=== PATIENT | male | born 1945 | race Caucasian/White ===

== ENCOUNTER 2023-08-25 13:09 | Emergency (ER) | payer MEDICARE, SELFPAY ==
--- NOTE | ~2023-08-25 | XR_ITS ---
EXAMINATION: XR CHEST CLINICAL INFORMATION: Shortness of breath. COMPARISON: None available. TECHNIQUE: 2 views of the chest were obtained. FINDINGS: Left cardiac device with leads in right atrium and right ventricle. No vascular congestion or pulmonary edema. Lungs are hypoexpanded. Small bilateral pleural effusions. No pneumothorax. No focal consolidation. Cholecystectomy clips. Degenerative changes in the spine. XR/XR chest 2V IMPRESSION: Small bilateral pleural effusions. No over edema or focal pneumonia.
--- NOTE | 2023-08-25 13:11 | ED_ITS ---
HPI - General Adult General Chief complaint: General Medical Stated complaint: Difficulty breathing, congestion Time Seen by Provider: 08/25/23 13:45 Source: patient Mode of arrival: ambulatory Limitations: no limitations History of Present Illness HPI narrative: Patient is a 78-year-old male who presents emergency department for evaluation of productive cough, nasal congestion, body aches. Symptom onset 5 days ago. Initially was short of breath but this has since resolved. Primarily his concern is he nasal congestion and cough. Cough is keeping him up at night. He has tried OTC cold medications without significant improvement. He denies fevers, chills, headache, neck pain, neck stiffness, chest pain, difficulty breathing, shortness of breath, numbness or tingling of the extremities, lower extremity edema, nausea, vomiting, abdominal pain. Related Data Previous Rx's Medication Instructions Recorded amoxicillin 875 mg-potassium 1 tab PO BID #14 tabs 08/25/23 clavulanate 125 mg tablet codeine 10 mg-guaifenesin 100 mg/5 10 ml PO Q6H PRN cough #118 mL 08/25/23 mL oral liquid Allergies Allergy/AdvReac Type Severity Reaction Status Date / Time latex [LATEX] Allergy Unknown RASH Unverified 06/30/20 15:12 morphine [MORPHINE] Allergy Unknown UNK Unverified 06/30/20 15:12 Review of Systems 2 Review of Systems: Yes all other systems are reviewed and are negative [facility] Past Medical History Attestation statement: The following information was validated with the patient. Source: old records reviewed Social History Social History Advance Directives: No Advance Directives Information Provided: No Physical Exam ED Vital Signs: Vital Signs - 24 hr 08/25/23 13:14 Temperature 97.7 F Pulse Rate 73 Respiratory Rate 18 Blood Pressure 134/78 Pulse Oximetry 95 Oxygen Delivery Method Room Air BMI result Body Mass Index 29.7 Appearance: Alert.?Oriented to person, place and time. No acute distress.?Normal affect. Eyes: Pupils equal, round and reactive to light.? ENT: Pharynx normal.?? Bilateral maxillary sinus tenderness upon palpation Neck: Normal inspection.? Neck supple.?? no cervical lymphadenopathy CVS: Heart sounds normal. Normal heart rate and rhythm.? Pulses normal.?? Respiratory: No respiratory distress.? Lung sounds clear to auscultation bilaterally?? Abdomen: Soft and non-tender. Normoactive bowel sounds. Skin: Skin warm and dry.? Normal skin color.? Extremities: No lower extremity edema.? No calf ttp? Neuro: Moves all extremities spontaneously. Sensation intact bilaterally. Ambulates with normal steady gait. Course Course Course Narrative: RME performed by Mihaela Rodriguez PA-C. Patient is a 78 year old assigned male at presenting to the emergency department with shortness of breath and body aches. Labs, imaging, and swabs ordered. Patient placed back in the waiting room pending room availability and results. Medical Decision Making Medical Decision Making [facility] Narrative: patient is a 78-year-old male past medical history of atrial fibrillation on warfarin, pacemaker, hypertension, diabetes, GERD, hyperlipidemia who presents to the emergency department for evaluation of upper respiratory symptoms as per HPI. At the time my examination he is overall appearing, nontoxic, afebrile. No tachypnea, tachycardia, or hypoxia. Wells score negative, anticoagluated with warfarin and has been copliant, unlikely pulmonary embolism. No chest pain, currently no shortness of breath, unlikely ACS, high sensitive troponin detectable but within normal limits, EKG revealing atrial fibrillation with incomplete right bundle-branch block with Q-wave in V1- V2, rate controlled, no ST elevation, no ST depression, no T-wave inversion. symptoms consistent with bronchitis/acute sinusitis, discussed plan of care for discharge home, conservative treatment, saline sinus rinses, sent prescription for Augmentin to pharmacy, discussed close monitoring of INR while on antibiotics. reviewed worrisome signs and symptoms that would warrant re-evaluation emergency department. All questions answered. Stable for discharge. Differential Diagnosis Differential Diagnoses: The differential diagnosis associated with the presentation includes ( as noted above) Admission/Observation Consideration of admission/observation: Escalation of care including admission/observation considered Lab Data [facility] Lab Attestation statement: I reviewed the patient's lab results. CBC is without leukocytosis, mild normocytic anemia not needing transfusion criteria. CMP is overall unremarkable, mildly elevated BUN at 19 and creatinine 1.21 consistent with prior levels in March of 2019. High sensitive troponin detectable at 13, however within normal limits. COVID- 19/influenza / RSV testing negative. 08/25/23 13:34 08/25/23 13:34 Labs: Lab Results 08/25/23 Range/Units 13:34 WBC 8.6 (4.8-10.8) X10*3/uL RBC 4.55 L (4.60-5.80) X10*6/uL Hgb 13.1 L (14.0-18.0) g/dl Hct 39.2 L (42.0-52.0) % MCV 86.2 (80.0-98.0) fL MCH 28.8 (27.0-33.0) pg MCHC 33.4 (31.0-36.0) g/dl RDW 12.9 (11.0-16.0) % Plt Count 212 (160-400) X10*3/uL MPV 9.4 (9.4-12.4) fL Immature Gran % (Auto) 0.2 (0.0-0.4) % Neut % (Auto) 70.3 (45-73) % Lymph % (Auto) 13.4 L (20-40) % [place] % (Auto) 11.2 H (2-11) % Eos % (Auto) 4.3 H (0-4) % Baso % (Auto) 0.6 (0-2) % Lymph # (Auto) 1.2 (1.2-4.9) X10*3/uL [place] # (Auto) 1.0 (0.1-1.2) X10*3/uL Eos # (Auto) 0.4 (0.0-0.4) X10*3/uL Baso # (Auto) 0.1 (0.0-0.2) X10*3/uL Abs Immat Gran (auto) 0.02 (0.00-0.03) X10*3/uL Absolute Neuts (auto) 6.1 (2.0-8.3) x10*3/uL Absolute Nucleated RBC 0.000 (0.0-0.012) X10*3/uL Nucleated RBC % (auto) 0.0 (0.0-0.2) /100WBC Sodium 139 (135-145) mmol/L Potassium 4.0 (3.3-5.1) mmol/L Chloride 102 (96-108) mmol/L Carbon Dioxide 28 (22-29) mmol/L Anion Gap 13 (12-20) BUN 19 H (9-16) mg/dL Creatinine 1.21 (0.5-1.4) mg/dL Estim Creat Clear Calc 57.0 Estimated GFR 58 Random Glucose 186 H (60-115) mg/dL Calcium 9.5 (8.4-10.2) mg/dL Magnesium 2.1 (1.6-2.6) mg/dL Total Bilirubin 1.1 H (0.0-1.0) mg/dL AST 15 (5-37) U/L ALT 12 (0-40) U/L Alkaline Phosphatase 81 (39-117) U/L Troponin I High Sens 13.0 (<3.5-35.0) ng/L Total Protein 7.1 (6.5-8.0) g/dL Albumin 4.2 (3.5-5.0) g/dL Independent Interpretation I performed an independent interpretation of an: EKG ( As noted above) and Plain X-Ray ( I have personally interpreted chest x-ray and agree with radiologist impression.) Radiology Impression Discussion of test interpretation with radiology: I have reviewed the radiologist's reading. Radiologist Impression: XR/XR chest 2V IMPRESSION: Small bilateral pleural effusions. No over edema or focal pneumonia. Independent Historian Clinical information obtained from an independent historian. History obtained from or confirmed by: Spouse ( present at bedside who confirms history) External Record Review External record reviewed: Outpatient record Prescription Management I considered prescription management with: Antibiotic Discharge Plan Discharge Clinical Impression: Bronchitis, Acute maxillary sinusitis Patient Disposition: Home, Self-Care Instructions: Sinusitis (ED), Acute Bronchitis (ED) Additional Instructions: please discuss with your primary care provider and Coumadin clinic close monitoring your INR while oral antibiotics. Follow up their primary care provider for any persistent symptoms. Return back to emergency department with any new or worsening symptoms or concerns. Prescriptions: New amoxicillin-pot clavulanate 875-125 mg tablet 1 tab PO BID Qty: 14 0RF codeine-guaifenesin 10-100 mg/5 mL liquid 10 ml PO Q6H PRN (Reason: cough) Qty: 118 0RF Referrals: Michael Ron MD [Primary Care Provider] -
[2023-08-25 13:14] VITALS: BP 134/78; PULSE 73; RESP 18; TEMP 36.5; O2SAT 95; BMI 29.7
--- NOTE | 2023-08-25 13:14 | ECG_ITS ---
Test Reason : SOB Blood Pressure : / mmHG Vent. Rate : 077 BPM Atrial Rate : 000 BPM P-R Int : 000 ms QRS Dur : 102 ms QT Int : 392 ms P-R-T Axes : 000 -25 032 degrees QTc Int : 443 ms Atrial fibrillation Incomplete right bundle branch block Abnormal ECG When compared with ECG of 24-MAR-2019 21:10, Atrial fibrillation has replaced Electronic atrial pacemaker Referred By: Mihaela Rodriguez Electronically Signed By:EARNEST HARPER MD
[2023-08-25 13:38] LABS: MANUAL DIFF FLAG NO
[2023-08-25 13:57] LABS: Alanine Aminotransferase 12 U/L (0-40); Albumin Level 4.2 g/dL (3.5-5.0); Alkaline Phosphatase 81 U/L (39-117); Anion Gap 13 (12-20); Aspartate Amino Transferase 15 U/L (5-37); Bilirubin Total 1.1 mg/dL (0.0-1.0); Blood Urea Nitrogen 19 mg/dL (9-16); Calcium 9.5 mg/dL (8.4-10.2); Carbon Dioxide 28 mmol/L (22-29); Chloride 102 mmol/L (96-108); Estimated Glomerular Filt Rate 58; Glucose Random 186 mg/dL (60-115); Magnesium 2.1 mg/dL (1.6-2.6); Sodium 139 mmol/L (135-145); Total Protein 7.1 g/dL (6.5-8.0)
[2023-08-25 13:58] LABS: Basophils Absolute Auto 0.1 X10*3/uL (0.0-0.2); Basophils Percent Auto 0.6 % (0-2); Eosinophils Absolute Auto 0.4 X10*3/uL (0.0-0.4); Eosinophils Percent Auto 4.3 % (0-4); Hematocrit 39.2 % (42.0-52.0); Hemoglobin 13.1 g/dl (14.0-18.0); Imm Gran Abs Auto 0.02 X10*3/uL (0.00-0.03); Imm Gran Pct Auto 0.2 % (0.0-0.4); Lymphocytes Absolute Auto 1.2 X10*3/uL (1.2-4.9); Lymphocytes Percent Auto 13.4 % (20-40); Mean Corpuscular HGB Conc 33.4 g/dl (31.0-36.0); Mean Corpuscular Hemoglobin 28.8 pg (27.0-33.0); Mean Corpuscular Volume 86.2 fL (80.0-98.0); Mean Platelet Volume 9.4 fL (9.4-12.4); Monocytes Percent Auto 11.2 % (2-11); Neutrophils Absolute Auto 6.1 x10*3/uL (2.0-8.3); Neutrophils Percent Auto 70.3 % (45-73); Platelet Count 212 X10*3/uL (160-400); Red Blood Count 4.55 X10*6/uL (4.60-5.80); Red Cell Distribution Width 12.9 % (11.0-16.0); White Blood Count 8.6 X10*3/uL (4.8-10.8)
[2023-08-25 14:18] LABS: Influenza A PCR NEGATIVE (Negative); Influenza B PCR NEGATIVE (Negative); Resp Syncy Virus RNA Qual PCR NEGATIVE (Negative); SARS COV2 PCR INHOUSE NEGATIVE (Negative)
[2023-08-25 14:57] LABS: B Type Natriuretic Peptide 143 pg/mL (<100)
== END 2023-08-25 15:12 | disposition home or self-care (01) ==
PROVIDERS: Nurse Practitioner Family; Physician Assistant Medical; Emergency Provider Emergency Medicine Emergency Medical Services; PCP Internal Medicine
DX: J40 Bronchitis, not specified as acute or chronic (principal); J01.00 Acute maxillary sinusitis, unspecified; R06.02 Shortness of breath; Z20.822 Contact with and (suspected) exposure to COVID-19; Z20.828 Contact with and (suspected) exposure to other viral communicable diseases
CPT/HCPCS: 0241U; 71046; 80053; 83735; 83880; 84484; 85025; 93005; 99283; 99284

== ENCOUNTER 2024-11-04 21:55 | Emergency (ER) | payer MEDICARE, SELFPAY ==
--- NOTE | ~2024-11-04 | CT_ITS ---
CLINICAL HISTORY: right flank pain CT abdomen and pelvis without contrast Comparison: None Findings: The lung bases are clear. Liver is of low-attenuation, hepatic steatosis. Gallbladder is surgically absent. Pancreas spleen and adrenal glands are within normal limits. Kidneys are non hydronephrotic. No bowel obstruction, pneumoperitoneum, or pneumatosis. Fat containing bilateral inguinal hernias noted. Sigmoid diverticulosis is present without diverticulitis. Visualized appendix is normal. Grade 1 anterolisthesis of L5 on S1 is present. No fracture or acute osseous abnormality identified. Atherosclerotic vascular calcifications are noted. IMPRESSION: No acute findings. This document has been electronically signed by: Mahendra Valero MD, PHD on 11/05/2024 03:35:30
[2024-11-04 22:00] VITALS: BP 174/89; PULSE 79; RESP 18; TEMP 36.2; O2SAT 98; BMI 28.8
[2024-11-05 00:19] VITALS: BP 186/81; PULSE 73; RESP 14; O2SAT 97
--- NOTE | 2024-11-05 00:58 | ED.GENADULT ---
HPI - General Adult General Chief complaint: Back Pain/Injury Stated complaint: back pain Time Seen by Provider: 11/05/24 00:58 History of Present Illness ED Provider: Emerson HENDRICKSON narrative: The patient is a 79-year-old male who was on warfarin because of atrial fibrillation. Patient has been experiencing back pain in his right lower back since Saturday night, about 3 days ago. There was no injury that seemed to precipitate this syndrome. He has had no fever, sweats, chills. He says the pain comes in spasms. He feels the pain in the right leg as well and has pain walking when he puts pressure on the right leg. Related Data Previous Rx's ?Medication ?Instructions ?Recorded amoxicillin 875 mg-potassium 1 tab PO BID #14 tabs 08/25/23 clavulanate 125 mg tablet codeine 10 mg-guaifenesin 100 mg/5 10 ml PO Q6H PRN cough #118 mL 08/25/23 mL oral liquid codeine 10 mg-guaifenesin 100 mg/5 10 ml PO Q6H PRN cough #118 mL 08/27/23 mL oral liquid cyclobenzaprine 5 mg tablet 5 mg PO TID PRN muscle spasm #14 11/05/24 tabs oxycodone 5 mg tablet 5 mg PO Q6H PRN pain #14 tabs 11/05/24 Allergies Allergy/AdvReac Type Severity Reaction Status Date / Time latex [LATEX] Allergy Unknown RASH Verified 11/04/24 22:02 morphine [MORPHINE] Allergy Unknown UNK Verified 11/04/24 22:02 Review of Systems Review of Systems: Yes all other systems are reviewed and are negative [facility] Social History Social History Alcohol intake: current Alcohol intake frequency: holidays/special occasions only Physical Exam ED Vital Signs: Vital Signs - 24 hr 11/04/24 22:00 11/05/24 00:19 11/05/24 04:33 Temperature 97.2 F 98.2 F Pulse Rate 79 73 64 Respiratory Rate 18 14 16 Blood Pressure 174/89 H 186/81 H 160/85 H Pulse Oximetry 98 97 98 Oxygen Delivery Method Room Air Room Air Room Air BMI result Body Mass Index 28.8 Const Other: The patient is a 79-year-old male. He is awake and alert. He was sitting on the side of the stretcher. He did not seem obviously acutely ill but had frequent episodes of what seemed to be acute spasm like pain that seemed to cause evident discomfort. These episodes seemed fairly frequent and uncomfortable but brief. His mental status was normal. He did not seem otherwise toxic or in distress. HENMT Other: Face is symmetrical. Mucous membranes moist. Eyes General: appearance normal, both eyes and all related structures Neck Neck: Yes full ROM Resp Effort & Inspection: normal respiratory effort Auscultation: clear to auscultation bilaterally Cardio Other: the patient had an irregular rate and rhythm. No definite murmur. GI Other: The abdomen is soft and nontender Back/Spine/Pelvis Other: patient has tenderness in his right lower back near the posterior superior iliac spine. Skin Other: Skin is dry and unremarkable Neuro Other: the patient is awake and alert with normal mental status. Cranial nerves are intact. He has some pain moving his right leg but otherwise he seems neurologically intact with intact sensation and motor function which is intact aside from pain. Extrem Other: No peripheral edema. Medications Administered Discontinued Medications Generic Name Dose Route Start Last Admin Trade Name Hali PRN Reason Stop Dose Admin Cyclobenzaprine HCl 10 mg 11/05/24 03:52 11/05/24 04:37 Cyclobenzaprine Hcl 10 Mg Tablet PO 11/05/24 03:53 10 mg ONCE ONE Administration Acetaminophen 1,000 mg in 100 mls @ 400 mls/hr 11/05/24 01:03 11/05/24 01:35 Ofirmev IV 11/05/24 01:17 Infused ONCE ONE Infusion Lidocaine 2 patch 11/05/24 04:22 11/05/24 04:37 Lidocaine 4 % Patch Adh..Patch TRANSDERMA 11/05/24 04:23 2 patch ONCE ONE Administration Protocol Oxycodone HCl 5 mg 11/05/24 01:03 11/05/24 01:10 Oxycodone Hcl Immed Release 5 Mg Tablet PO 11/05/24 01:04 5 mg ONCE ONE Administration Medical Decision Making Medical Decision Making MDM Narrative: The patient is a 79-year-old male with a history of atrial fibrillation on warfarin who has had 3 days of nontraumatic right-sided low back pain that radiates to the right buttock and is not associated with any neurological complaints. No fevers. The pain that he seems to be experiencing seems to come in frequent episodes of spasms. The patient was given an IV dose of acetaminophen and an oral dose of oxycodone. It was not clear that he got that much benefit from these medications. He was also given a dose of cyclobenzaprine as a muscle relaxant. Ultimately he seemed to be somewhat more comfortable. He has a noncontrast CT of the abdomen and pelvis that shows no obvious concerning problems to account for his pain. His labs are unremarkable. His INR is therapeutic. He does not have any anemia to suggest any kind of pathological bleeding process causing this pain and there is no hematoma seen on his noncontrast CT. Diagnostically I think this is some kind of a muscular spasm like back pain rather than anything more worrisome. He does not seem to have any neurological complications. He will be discharged with prescriptions for oxycodone and cyclobenzaprine and should also use acetaminophen. He should follow up with his PCP soon. Lab Data 11/05/24 01:19 11/05/24 01:19 Labs: Lab Results 11/05/24 Range/Units 01:19 WBC 10.0 (4.8-10.8) X10*3/uL RBC 5.25 (4.60-5.80) X10*6/uL Hgb 15.2 (14.0-18.0) g/dl Hct 44.9 (42.0-52.0) % MCV 85.5 (80.0-98.0) fL MCH 29.0 (27.0-33.0) pg MCHC 33.9 (31.0-36.0) g/dl RDW 13.1 (11.0-16.0) % Plt Count 203 (160-400) X10*3/uL MPV 9.3 L (9.4-12.4) fL Immature Gran % (Auto) 0.3 (0.0-0.4) % Neut % (Auto) 76.4 H (45-73) % Lymph % (Auto) 13.5 L (20-40) % [place] % (Auto) 6.5 (2-11) % Eos % (Auto) 2.7 (0-4) % Baso % (Auto) 0.6 (0-2) % Lymph # (Auto) 1.3 (1.2-4.9) X10*3/uL [place] # (Auto) 0.7 (0.1-1.2) X10*3/uL Eos # (Auto) 0.3 (0.0-0.4) X10*3/uL Baso # (Auto) 0.1 (0.0-0.2) X10*3/uL Abs Immat Gran (auto) 0.03 (0.00-0.03) X10*3/uL Absolute Neuts (auto) 7.6 (2.0-8.3) x10*3/uL Absolute Nucleated RBC 0.000 (0.0-0.012) X10*3/uL Nucleated RBC % (auto) 0.0 (0.0-0.2) /100WBC PT 28.3 H (10.9-12.4) SEC INR 2.4 H (0.9-1.1) Sodium 140 (135-145) mmol/L Potassium 3.9 (3.3-5.1) mmol/L Chloride 105 (96-108) mmol/L Carbon Dioxide 24 (22-29) mmol/L Anion Gap 15 (12-20) BUN 17 H (9-16) mg/dL Creatinine 1.12 (0.5-1.4) mg/dL Estim Creat Clear Calc 59.8 Estimated GFR > 60 Random Glucose 217 H (60-115) mg/dL Calcium 10.0 (8.4-10.2) mg/dL Magnesium 2.1 (1.6-2.6) mg/dL Total Bilirubin 0.8 (0.0-1.0) mg/dL Direct Bilirubin 0.3 (0.0-0.5) mg/dL AST 28 (5-37) U/L ALT 34 (0-40) U/L Alkaline Phosphatase 84 (39-117) U/L C-Reactive Protein 0.11 (< or = 0.50) mg/dL Total Protein 7.9 (6.5-8.0) g/dL Albumin 4.5 (3.5-5.0) g/dL Discharge Plan Discharge Clinical Impression: Acute right-sided low back pain, Back muscle spasm Patient Disposition: Home, Self-Care Additional Instructions: I believe you are having muscle back spasms in your right lower back. Your testing in the emergency room is otherwise reassuring. To treat this pain I would recommend using 2 extra-strength acetaminophen (Tylenol) up to 3 times per day (approximately every 8 hours). You may also apply lidocaine patches. Apply these for 12 hours at a time and then wait 12 hours before applying another patch. I have also sent a prescription for the medication cyclobenzaprine, a muscle relaxant that might help with the pain and which you can use up to 3 times per day as needed. Additionally I have sent a prescription for oxycodone that you may use as needed for pain. Use as prescribed. Please contact your regular doctor's office later today to arrange a prompt follow up appointment to discuss this further. If significantly worse please return to the emergency department. Prescriptions: New oxycodone 5 mg tablet 5 mg PO Q6H PRN (Reason: pain) Qty: 14 0RF Rx Instructions: Partial Fill upon patient request. cyclobenzaprine 5 mg tablet 5 mg PO TID PRN (Reason: muscle spasm) Qty: 14 0RF No Action amoxicillin-pot clavulanate 875-125 mg tablet 1 tab PO BID Qty: 14 0RF codeine-guaifenesin 10-100 mg/5 mL liquid 10 ml PO Q6H PRN (Reason: cough) Qty: 118 0RF codeine-guaifenesin 10-100 mg/5 mL liquid 10 ml PO Q6H PRN (Reason: cough) Qty: 118 0RF Referrals: Michael Ron MD [Primary Care Provider] - (back pain and spasms) Discharge Date/Time: 11/05/24 06:04 Print Language: Icelandic
[2024-11-05] MEDS: oxyCODONE HCl Immed Release 5 MG TABLET PO (01:10)
[2024-11-05] MEDS: Acetaminophen 1,000 MG/100 ML PIGGYBACK 400 MG IV (01:20)
[2024-11-05 01:24] LABS: MANUAL DIFF FLAG NO
[2024-11-05 01:30] LABS: Basophils Absolute Auto 0.1 X10*3/uL (0.0-0.2); Basophils Percent Auto 0.6 % (0-2); Eosinophils Absolute Auto 0.3 X10*3/uL (0.0-0.4); Eosinophils Percent Auto 2.7 % (0-4); Hematocrit 44.9 % (42.0-52.0); Hemoglobin 15.2 g/dl (14.0-18.0); Imm Gran Abs Auto 0.03 X10*3/uL (0.00-0.03); Imm Gran Pct Auto 0.3 % (0.0-0.4); Lymphocytes Absolute Auto 1.3 X10*3/uL (1.2-4.9); Lymphocytes Percent Auto 13.5 % (20-40); Mean Corpuscular HGB Conc 33.9 g/dl (31.0-36.0); Mean Corpuscular Volume 85.5 fL (80.0-98.0); Mean Platelet Volume 9.3 fL (9.4-12.4); Monocytes Absolute Auto 0.7 X10*3/uL (0.1-1.2); Monocytes Percent Auto 6.5 % (2-11); Neutrophils Absolute Auto 7.6 x10*3/uL (2.0-8.3); Neutrophils Percent Auto 76.4 % (45-73); Platelet Count 203 X10*3/uL (160-400); Red Blood Count 5.25 X10*6/uL (4.60-5.80); Red Cell Distribution Width 13.1 % (11.0-16.0)
[2024-11-05 01:36] LABS: INTERNATIONAL NORM RATIO 2.4 (0.9-1.1); Prothrombin Time 28.3 SEC (10.9-12.4)
[2024-11-05 01:45] LABS: Alanine Aminotransferase 34 U/L (0-40); Albumin Level 4.5 g/dL (3.5-5.0); Alkaline Phosphatase 84 U/L (39-117); Anion Gap 15 (12-20); Aspartate Amino Transferase 28 U/L (5-37); Bilirubin Direct 0.3 mg/dL (0.0-0.5); Bilirubin Total 0.8 mg/dL (0.0-1.0); Blood Urea Nitrogen 17 mg/dL (9-16); C Reactive Protein 0.11 mg/dL (< or = 0.50); Carbon Dioxide 24 mmol/L (22-29); Chloride 105 mmol/L (96-108); Creatinine Clr Calc Pharmacy 59.8; Estimated Glomerular Filt Rate > 60; Glucose Random 217 mg/dL (60-115); Magnesium 2.1 mg/dL (1.6-2.6); Potassium 3.9 mmol/L (3.3-5.1); Sodium 140 mmol/L (135-145); Total Protein 7.9 g/dL (6.5-8.0)
[2024-11-05 04:33] VITALS: BP 160/85; PULSE 64; RESP 16; TEMP 36.8; O2SAT 98
[2024-11-05] MEDS: Lidocaine 4 % Patch ADH..PATCH 2 PATCH TRANSDERMA (04:37)
[2024-11-05] MEDS: Cyclobenzaprine HCl 10 MG TABLET PO (04:37)
== END 2024-11-05 06:04 | disposition home or self-care (01) ==
PROVIDERS: Emergency Provider Emergency Medicine; PCP Internal Medicine
DX: M54.50 Low back pain, unspecified (principal); M62.838 Other muscle spasm; R10.2 Pelvic and perineal pain; Z79.899 Other long term (current) drug therapy
CPT/HCPCS: 36415; 74176; 80048; 80076; 83735; 85025; 85610; 86140; 96374; 99284; J0131

== ENCOUNTER → 2024-11-05 01:35 | Outpatient (BNV) | payer MEDICARE, SELFPAY | PROVIDERS: Emergency Provider Emergency Medicine; PCP Internal Medicine; Visit Provider General Practice | DX: R10.9 Unspecified abdominal pain (principal) | CPT/HCPCS: 74176 ==

== ENCOUNTER 2025-09-11 12:29 | Emergency (ER) | payer MEDICARE, SELFPAY ==
--- OUTSIDE RECORDS SUMMARY | 2025-09-07 09:30 | XMS_ITS | Encounter Summary ---
Author Organization [facility] Address [address] [place] [address] Care Team Providers Care Staffing Operations Manager Name Role Phone Michael Ron MD Primary Care Provider [phone] Reason for Visit * Reason Comments Cough Patient here for a f ollow up and has stated he has a cold. Patient has a cough and congestion. Patient took a covid test this morning that was negative. Patient is coughing up phlegm. 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 (CMS/HCC V24, CMS/HCC V28); Stage 3a chronic kidney disease (CMS/HCC V24, CMS/HCC V28); Essential hypertension, benign; Back pain of lumbar region with sciatica; Hypothyroidism, unspecified type; Permanent atrial fibrillation (CMS/HCC V24, CMS/HCC V28) Social History Tobacco Use Types Packs/Day Years Used Date Smoking Tobacco: Never Smokeless Tobacco: Never Tobacco Cessation:Counseling Given: Not Answered Alcohol Use Standard Drinks/Week Comments Yes 0 (1 standard drink = 0.6 oz pur e alcohol) occasional Housing Instability Answer Date Recorde d Are you worried that in the next 2 months you may not have stable housing? No 09/07/2025 Food Access & Nutrition Answer Date Rec orded Do you have access to a vari ety of food including fruits and vegetables? Yes 09/07/2025 Access to Healthcare Answer Date Record ed Within the last 3 months, ho w many times did you visit the emergency department for your medical care? 0 09/07/2025 Health Literacy Answer Date Recorded How often do you need to hav e someone help you when you read instructions, pamphlets, or other written material from your doctor or pharmacy? Never 09/07/2025 Caregiver: How often do you need to have someone help you when you read instructions, pamphlets, or other written material from your doctor or pharmacy? Not on file 09/07/2025 Financial Risk Answer Date Recorded How hard is it for you to pa y for the very basics like food, housing, medical care, and air conditioning / heating? Not very hard 09/07/2025 Transportation Answer Date Recorded Has the lack of transportati on kept you from meetings, work, or from getting things needed for daily living? No Has the lack of transportati on kept you from medical appointments or from getting medications? No 09/07/2025 Social Isolation Answer Date Recorded How often do you feel lonely or isolated from th ose around you? Never 09/07/2025 Food Risk Answer Date Recorded Within the past 12 months we worried whether our food would run out before we got money to buy more. Never true 09/07/2025 Within the past 12 months th e food we bought just didn't last and we didn't have money to get more. Never true 09/07/2025 Dependent Care Answer Date Recorded Do you need help finding or paying for care for your loved ones. For example, child welfare consultant or elderly care for an older adult? No 09/07/2025 Education Answer Date Recorded Do you think completing more education or training, like finishing a GED, going to college, or learning a trade, would be helpful for you? No 09/07/2025 Employment and Income Answer Date Recor ded During the last four weeks, have you been actively looking for work? No 09/07/2025 Living Situation Answer Date Recorded What is your living situation? Unrecognized valu e 09/07/2025 Sex and Gender Information Value Date Recorded Sex Assigned at Male 08/27/2024 11:43 AM EST Legal Sex Male 2:47 AM EST Gender Identity Male 08/27/2024 11:43 AM EST Sexual Orientation Choose not to disclose 2023 11:43 AM EST documented as of this encounter Last Filed Vital Signs Vital Sign Reading Time Taken Comments Blood Pressure 138/75 09/07/2025 9:38 AM EST Pulse 62 09/07/2025 9:38 AM EST Temperature 36.3 C (97.3 F) 09/07/2025 9:38 AM EST Respiratory Rate - - Oxygen Saturation 97% 09/07/2025 9:38 AM EST Inhaled Oxygen Concentration - - Weight 88.9 kg (196 lb) 09/07/2025 9:38 AM EST Height 175.3 cm (5' 9 ) 09/07/2025 9:38 AM EST Body Mass Index 28.94 09/07/2025 9:38 AM EST documented in this encounter Ordered Prescriptions Prescription Sig Dispense Quantity Refills Last Filled Start Date End Date benzonatate (TESSALON) 100 mg capsule Take 1 capsule (100 mg total) by mouth 3 (three) times a day if needed for cough. Do not crush or chew. 42 capsule 09/07/2025 5 benzonatate (TESSALON) 100 mg capsule Take 1 capsule (100 mg total) by mouth 3 (three) times a day if needed for cough. Do not crush or chew. 42 capsule 09/07/2025 5 documented in this encounter Progress Notes * Jenny Hernández NP - 09/07/2025 9:30 AM EST PATIENT'S PCP: Michael Ron MD LAST VISIT IN THIS DEPARTMENT: 06/10/2025 Joseph Srinivasan is a 80 y.o. (: 1945) male who presents today for: Chief Complaint Patient presents with Cough Patient here for a follow up and has stated he has a cold. Patient has a cough and congestion. Patient took a covid test this morning that was negative. Patient is coughing up phlegm. SUBJECTIVE History of Present Illness The patient presents for a routine follow-up visit. He has been experiencing a cold since this morning, accompanied by a cough and mucus production. Sesy-iup-hskroku medications have not provided relief. His current medication regimen includes hydrochlorothiazide 25 mg, carvedilol 25 mg, lisinopril 40 mg, simvastatin 10 mg, Coumadin, and levothyroxine 25 mg. He reports no chest pain or shortness of breath. He has no history of myocardial infarction or stroke. He has been managing diabetes with insulin, having discontinued glipizide. His blood glucose level today was 119. He is currently on Lantus, administered at bedtime, with a dosage of 18 units. He also takes metformin 500 mg twice daily. He has initiated a cycling regimen but has had to discontinue due to cold weather conditions. A few weeks ago, he began experiencing back pain, described as a tingling sensation radiating from his back to his side. This intermittent pain has been present for approximately 2 weeks, predominantly occurring in the morning and subsiding as the day progresses. He reports no arm numbness. Hobbies: Cycling Review Of System Review of Systems Constitutional: Negative. Negative for chills and fever. HENT: Positive for congestion. Respiratory: Positive for cough. Cardiovascular: Negative. Gastrointestinal: Negative. Endocrine: Negative. Genitourinary: Negative. Musculoskeletal: Negative. Skin: Negative. Neurological: Negative. Hematological: Negative. 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 ([facility] V24, [facility] V28) 06/07/2025 Implantable cardioverter-defibrillator (ICD) at end of device life 11/11/2024 Tendinitis of right rotator cuff 09/07/2024 Atrial fibrillation ([facility] V24, [facility] V28) 08/31/2024 intermediate (current) use of anticoagulants 08/31/2024 Hypothyroidism 07/21/2024 Thyroid nodule 07/21/2024 Elevated TSH 02/12/2024 Prostate cancer ([facility] V24, [facility] V28) 10/10/2023 Nonrheumatic mitral valve regurgitation 06/12/2023 Permanent atrial fibrillation ([facility] V24, [facility] V28) 06/12/2023 SOB (shortness of breath) 06/12/2023 VT (ventricular tachycardia) ([facility] V24, [facility] V28) 06/12/2023 Obstructive sleep apnea 09/14/2019 Type 2 diabetes with peripheral circulatory disorder, controlled ([facility] V24, [facility] V28) 07/08/2016 Brugada syndrome 05/11/2016 Sick sinus syndrome ([facility] V24, [facility] V28) 05/11/2016 Solitary pulmonary nodule 02/17/2015 Enlarged thoracic aorta ([facility] V24) 12/24/2013 Lipoma of arm 07/01/2012 Urinary retention 06/13/2011 Chronic cholecystitis 06/01/2011 Abdominal wall mass 11/24/2010 Chronic low back pain 11/14/2010 Chronic sciatica 11/14/2010 Spondylolysis 11/14/2010 Essential hypertension, benign 11/08/2006 Diverticulitis of colon without hemorrhage 07/24/2005 Esophageal reflux 07/24/2005 Mixed hyperlipidemia 07/24/2005 Benign prostatic hyperplasia 01/10/2005 Coronary atherosclerosis of [place] coronary artery 01/10/2005 Syncope and collapse 01/10/2005 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 Surgical History[1] SOCIAL HISTORY: Social History Tobacco Use Smoking status: Never Smokeless tobacco: Never Substance Use Topics Alcohol use: Yes Comment: occasional FAMILY HISTORY: Family History[2] Family Status Relation Name Status Mother Brother (Not Specified) Father Daughter (Not Specified) Neg Hx (Not Specified) No partnership data on file Social Influencer of Health (SIOH): Social Influencers of Health Who provided answers?: Self Within the past 12 months we worried whether our food would run out before we got money to buy more.: Never true Within the past 12 months the food we bought just didn't last and we didn't have money to get more.: Never true How hard is it for you to pay for the very basics like food, housing, medical care, and air conditioning / heating?: Not very hard Are you worried that in the next 2 months you may not have stable housing?: No Do you have access to a variety of food including fruits and vegetables?: Yes Within the last 3 months, how many times did you visit the emergency department for your medical care?: 0 Has the lack of transportation kept you from meetings, work, or from getting things needed for daily living?: No Has the lack of transportation kept you from medical appointments or from getting medications?: No How often do you feel lonely or isolated from those around you?: Never How often do you need to have someone help you when you read instructions, pamphlets, or other written material from your doctor or pharmacy?: Never The following portions of the patient's chart were reviewed in this encounter and updated as appropriate: OBJECTIVES Vitals: 09/07/25 0938 BP: 138/75 Pulse: 62 Temp: 36.3 ??C (97.3 ??F) TempSrc: Temporal SpO2: 97% Weight: 88.9 kg (196 lb) Height: 1.753 m (69 ) BP Readings from Last 5 Encounters: 09/07/25 138/75 08/19/25 (!) 156/90 06/10/25 109/65 06/07/25 (!) 152/75 05/11/25 (!) 148/80 Body mass index is 28.94 kg/m??. BMI is greater than 25.0 (above the normal range) - see Plan Wt Readings from Last 5 Encounters: 09/07/25 0938 88.9 kg (196 lb) 08/19/25 0955 87.5 kg (193 lb) 06/10/25 1429 88 kg (194 lb) 06/07/25 0844 88.9 kg (196 lb) 05/11/25 1514 91.2 kg (201 lb) Allergies[3] Active Medications: Current Outpatient Medications Medication Instructions aspirin 81 mg EC tablet Take 1 tablet (81 mg total) by mouth 1 (one) time each day. OTC benzonatate (TESSALON) 100 mg, oral, 3 times daily PRN, Do not crush or chew. blood sugar diagnostic (FreeStyle Lite Strips) test strip Prescribed in Endocrinology [facility] blood-glucose meter kit Prescribed in Endocrinology [facility] carvediloL (COREG) 25 mg, oral, 2 times daily with meals FREESTYLE LANCETS MISC Prescribed in Endocrinology [facility] hydroCHLOROthiazide (HYDRODIURIL) 25 mg, oral, Daily insulin glargine (Lantus Solostar U-100 Insulin) 100 unit/mL (3 mL) injection pen Use 10 units at bedtime, increase by 2 units every 3 days with max dose of 20 units, if fasting sugars remain over 130 levothyroxine (SYNTHROID, LEVOTHROID) 25 mcg tablet TAKE 1 TABLET SATURDAY THROUGH SATURDAY, 2 TABLETS SATURDAY THROUGH SATURDAY. lisinopril (PRINIVIL,ZESTRIL) 40 mg, oral, Daily metFORMIN XR (GLUCOPHAGE-XR) 500 mg, oral, 2 times daily, with breakfast and dinner multivitamin (MULTIPLE VITAMINS ORAL) OTC nitroglycerin (NITROSTAT) 0.4 mg SL tablet 1 tablet, sublingual, Every 5 min PRN, Prescribed in Cardiology omeprazole (PRILOSEC) 20 mg, oral, Daily pen needle, diabetic (BD Ultra-Fine Short Pen Needle) 31 gauge x 5/16 needle Use to inject once daily as directed simvastatin (ZOCOR) 10 mg tablet TAKE 1 TABLET BY MOUTH AT BEDTIME warfarin (COUMADIN) 5 mg tablet TAKE 1 TABLET BY MOUTH DAILY AT THE SAME TIME DAILY DIRECTED BY ANTICOAG CLINIC. MAY CAUSE HEAVY BLEEDING. DO NOT CHANGE DIETARY HABITS Physical Exam Vitals reviewed. Constitutional: Appearance: Normal appearance. Cardiovascular: Rate and Rhythm: Normal rate and regular rhythm. Pulses: Normal pulses. Heart sounds: Normal heart sounds. Pulmonary: Effort: Pulmonary effort is normal. Breath sounds: Normal breath sounds. Abdominal: General: Bowel sounds are normal. Palpations: Abdomen is soft. Musculoskeletal: General: Normal range of motion. Cervical back: Normal range of motion and neck supple. Skin: General: Skin is warm and dry. Neurological: General: No focal deficit present. Mental Status: He is alert. Mental status is at baseline. IMAGING No Pertinent Imaging LABORATORY: CBC: Lab Results Component Value Date WBC 6.0 11/27/2024 HGB 14.7 11/27/2024 HCT 44.9 11/27/2024 MCV 89.3 11/27/2024 PLT 225 11/27/2024 CMP: Lab Results Component Value Date NA 137 08/13/2025 K 4.0 08/13/2025 CL 104 08/13/2025 CO2 25 08/13/2025 GLUCOSE 224 (H) 08/13/2025 BUN 19 08/13/2025 CREATININE 1.32 (H) 08/13/2025 CALCIUM 9.1 08/13/2025 EGFR 55 (L) 08/13/2025 A1c/Microalbuminuria/LDL/GFR: Lab Results Component Value Date HGBA1C 10.2 (H) 08/13/2025 HGBA1C 9.4 (H) 01/21/2025 HGBA1C 8.5 (H) 10/23/2024 Lab Results Component Value Date MICROALBUR 6.4 10/23/2024 LDLCALC 55 08/13/2025 CREATININE 1.32 (H) 08/13/2025 MICROALBCREA 13 10/23/2024 Lipids: Lab Results Component Value Date CHOL 129 08/13/2025 TRIG 123 08/13/2025 HDL 49 08/13/2025 LDLCALC 55 08/13/2025 VLDL 24.6 08/13/2025 NONHDLC 80 08/13/2025 CHOLHDL 2.6 08/13/2025 TSH: Lab Results Component Value Date TSH 3.77 08/13/2025 PSA: No results found for: PSA Lab Results Component Value Date LDLCALC 55 08/13/2025 1. Viral infection 2. 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 Stage 3a chronic kidney disease ([facility] V24, [facility] V28) 4. Essential hypertension, benign 5. Back pain of lumbar region with sciatica 6. Hypothyroidism, unspecified type 7. Permanent atrial fibrillation (CMS/HCC V24, [facility] V28) Assessment & Plan 1. Viral infection: - Symptoms suggest a viral infection that will likely resolve on its own. - Advised to maintain hydration and rest. - Prescription for cough medicine will be sent to pharmacy. - Can take Tylenol for body aches. - Should wear a mask and practice good hygiene to prevent spreading the infection. 2. Diabetes mellitus: - A1c level was 10.2 three weeks ago, indicating poorly controlled diabetes. - Fasting Blood sugar was 119 today. - Advised to monitor diet, particularly carbohydrate intake, and increase physical activity (walking or indoor cycling for 15-20 minutes at least three times a day). - Currently on Lantus insulin (18 units at bedtime) and metformin 500 mg twice a day. - Continue current insulin dosage as long as fasting glucose remains below 130. 3. Chronic kidney disease stage 3: - Kidney function slightly decreased, potentially due to elevated blood sugar levels. - Advised to avoid NSAIDs (ibuprofen, naproxen, Motrin, Aleve, Advil). Can use Tylenol for pain management. - Emphasized hydration. 4. Hypertension - Patient blood pressure is stable. - Is to continue carvedilol, hydrochlorothiazide 25 mg daily and lisinopril 40 mg daily - Advised patient to continue monitoring blood pressure. If blood pressure 140/90 twice he is to contact office. - Patient is to maintain a low-sodium diet. 5. Back pain: - Reports intermittent back pain with tingling that started about two weeks ago, mostly occurring in the morning and fading as the day goes on. - Could be related to muscle strain or nerve irritation. - If pain persists and becomes consistent, follow up is advised. 6. Hypothyroidism: - Last TSH levels were normal. - Currently taking levothyroxine 25 mg, with a dosing schedule of one tablet Saturday through Saturday and two tablets through Saturday. 7. Atrial fibrillation: - On Coumadin for atrial fibrillation and carvedilol 25 mg for rate control. - No chest pains or shortness of breath reported. Patient understands the plan and is in agreement with the plan. FOLLOW-UP: Follow up in about 3 months (around 12/08/2025). Health Maintenance Due Topic Date Due Diabetes: Annual Foot Exam Never done Zoster Vaccines (1 of 2) 02/21/2012 RSV Immunization Adult Patients (1 - 1-dose 75+ series) Never done Falls Risk Assessment Never done Medicare Annual Wellness Visit Never done DTaP,Tdap,and Td Vaccines (4 - Td or Tdap) 04/15/2024 Influenza Vaccine (1) 06/14/2025 COVID-19 Vaccine (6 - 2024- season) 2025 Jenny Hernández NP ADULT [address] [address] I have obtained verbal consent from Joseph Srinivasan prior to the recording. I have advised Joseph Srinivasan that he may refuse the recording and require the recording to be turned off at any time during this encounter. Today's documentation was made using voice recognition software.This note may contain grammatical errors secondary to this software. [1] Past Surgical History: Procedure Laterality Date CARDIAC CATHETERIZATION PROCEDURE: HISTORICAL CARDIAC CATH CARPAL TUNNEL RELEASE PROCEDURE: OK NEUROPLASTY &/TRANSPOS MEDIAN NRV CARPAL TUNNE CHOLECYSTECTOMY 2011 PROCEDURE: HISTORICAL CHOLECYSTECTOMY COLONOSCOPY 06/28/2003 PROCEDURE: HISTORICAL COLONOSCOPY; COMMENT: diverticulosis; no polyps COLONOSCOPY 11/09/1997 PROCEDURE: HISTORICAL COLONOSCOPY; COMMENT: one 5 mm tubular adenoma at 25 cm. COLONOSCOPY 05/19/2014 PROCEDURE: OK COLONOSCOPY FLX DX W/COLLJ SPEC WHEN PFRMD; COMMENT: no polyps KNEE ARTHROSCOPY W/ MENISCAL REPAIR PROCEDURE: OK ARTHROSCOPY KNEE W/MENISCUS RPR MEDIAL/LATERAL MOLE REMOVAL PROCEDURE: HISTORICAL MOLE (REMOVAL OF); COMMENT: Dysplastic nevus 12/21 (moderate atypia) 12/20 back(mild atypia) OTHER SURGICAL HISTORY 1990 PROCEDURE: OK ANES HERNIA REPAIR UPPER ABDOMEN OMPHALOCELE OTHER SURGICAL HISTORY 11/24/01 PROCEDURE: UPPER GASTROINTESTINAL ENDOSCOPY IN [2] Family History Problem Relation Name Age of Onset Ovarian cancer Mother Other (Other: multiple sclerosis) Mother Lung cancer Brother multiple sclerosis Stroke Father Melanoma Daughter Coronary artery disease Neg Hx no premature coronary disease or sudden [3] Allergies Allergen Reactions Latex Morphine Morphine Sulfate-Nacl documented in this encounter Plan of Treatment Upcoming Encounters Date Type Department Care Team (Late st Contact Info) Description 09/13/2025 9:00 AM EST Clinical Support [facility] - [address] [phone] 09/20/2025 9:00 AM EST Office Visit Endocrinology - [address] [phone] Hilda Lozano PA [address] [place] [id number] 11/11/2025 9:40 AM EST Office Visit [facility] [address] [facility] [address] [place] [id number] Mirian Benitez PA [address] [place] [address] [place] [phone] 12/15/2025 2:45 PM EST Office Visit Adult Medicine [facility] - [address] [phone] Michael Ron MD [address] [place] [address] 12/29/2025 1:30 PM EDT Ancillary Procedure [facility] - [address] [facility] [address] [place] [address] Scheduled Orders Name Type Priority Associated Diagnoses Orde r Schedule Basic metabolic panel Lab Routine Permanent atrial fibrillation ([facility] V24, [facility] V28) 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 ([facility] V24, [facility] V28) Essential hypertension, benign Stage 3a chronic kidney disease ([facility] V24, [facility] V28) Expected: 12/08/2025, Expires: 09/07/2026 Hemoglobin A1c Lab Routine Permanent atrial fibrillation ([facility] V24, [facility] V28) 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 ([facility] V24, [facility] V28) Essential hypertension, benign Stage 3a chronic kidney disease ([facility] V[facility], [facility] V[facility]) Expected: 12/08/2025, Expires: 09/07/2026 documented as of this encounter Visit Diagnoses Diagnosis Viral infection- Primary 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 ([facility] V24, [facility] V28) Stage 3a chronic kidney disease ([facility] V24, CMS/HCC V28) Essential hypertension, benign Back pain of lumbar region with sciatica Hypothyroidism, unspecified type Permanent atrial fibrillation ([facility] V[facility], [facility]) Atrial fibrillation Encounter for adjustment or management of cardiac device documented in this encounter Discontinued Medications Medication Sig Discontinue Reason Start Date End Da te empagliflozin (JARDIANCE) 10 mg tablet Take 1 tablet once daily Cost of medication 01/26/2025 09/07/2025 predniSONE (DELTASONE) 20 mg tablet Take 60 mg PO daily for 3 days, then take 40 mg PO daily for 3 days, then 20 mg PO daily for 3 days, then stop Therapy completed 06/10/2025 09/07/2025 benzonatate (TESSALON) 100 mg capsule Take 1 capsule (100 mg total) by mouth 3 (three) times a day if needed for cough. Do not crush or chew. 09/07/2025 09/07/2025 documented as of this encounter Additional Health Concerns Assessment Noted Time PHQ-9 Depression Total Score: 0 09/07/20 9:50 AM EST documented as of this encounter Care Teams Staffing Operations Manager Relationship Specialty Start Date End Date Michael Ron MD [address] [place] [address] PCP - General Internal Medicine 07/05/20 documented as of this encounter
--- NOTE | ~2025-09-11 | XR_ITS ---
CLINICAL HISTORY: cough 2 view chest x-ray. Comparison: 08/25/2023 Findings: No consolidation or effusion. Cardiac and mediastinal contours are stable, with stable ICD hardware.. Bones unremarkable. Impression: 1. No acute pulmonary disease. This document has been electronically signed by: Lawrence Wesbter MD on 09/11/2025 14:19:19
[2025-09-11 12:37] VITALS: BP 120/58; PULSE 70; RESP 20; TEMP 36.3; O2SAT 97; BMI 29.1
--- NOTE | 2025-09-11 12:40 | ED_ITS ---
HPI - General Adult General Chief complaint: Upper Respiratory Symptoms Stated complaint: throat pain Time Seen by Provider: 09/11/25 14:58 Source: patient, family ( at bedside corroborating history), RN notes reviewed and old records reviewed Mode of arrival: ambulatory Limitations: no limitations History of Present Illness ED Provider: [facility] HPI narrative: 80-year-old male with medical history of HTN, HLD, T2DM on insulin, afib on Eliquis, Presents to ED due to 10 days of worsening nasal congestion, and productive cough. Patient states he went to [place] urgent [facility] 4 days ago on 09/07 and was discharged with [facility] pedro. Patient states his nasal congestion and cough has been worsening over the last 4 days, and began to loose his voice 2 days ago. Patient states he has some occular pain when looking laterally with the L eye, but this is very mild, with pressure over the maxillary sinuses. Patient states he gets a sinus infection like this once a year and states his symptoms feel exactly the same to past sinus infections. Denies sick contacts, recent travel, fevers, headaches, visual changes, chest pain, shortness of breath, abdominal pain, nausea, vomiting MD complaint: cough, with nasal congestion Related Data Previous Rx's ?Medication ?Instructions ?Recorded amoxicillin 875 mg-potassium 1 tab PO BID #14 tabs 10/05 clavulanate 125 mg tablet codeine 10 mg-guaifenesin 100 mg/5 10 ml PO Q6H PRN co ugh #118 mL 08/25/23 mL oral liquid codeine 10 mg-guaifenesin 100 mg/5 10 ml PO Q6H PRN co ugh #118 mL 08/27/23 mL oral liquid cyclobenzaprine 5 mg tablet 5 mg PO TID PRN muscle spa sm #14 11/05/24 tabs oxycodone 5 mg tablet 5 mg PO Q6H PRN pain #14 tab s 11/05/24 amoxicillin 875 mg-potassium 1 tab PO BID 7 days #14 t abs 09/11/25 clavulanate 125 mg tablet azithromycin 500 mg tablet See Rx Instructions PO .COM PLEX #9 09/11/25 tabs Allergies Allergy/AdvReac Type Severity Reaction Status Date / Time latex (LATEX) Allergy Unknown RASH Verified 09/11/25 12:41 morphine (MORPHINE) Allergy Unknown UNK Verified 09/11/25 12:41 Review of Systems 2 Review of Systems: Yes all other systems are reviewed and are negative [facility] Past Medical History Attestation statement: The following information was validated with the patient. Source: old records reviewed, obtained from family ( at bedside corroborating history) and nursing notes reviewed Social History Social History Alcohol intake: current Alcohol intake frequency: holidays/special occasions only Advance Directives: No Advance Directives Information Provided: Yes Do you have a plan to hurt others: No Plan Physical Exam ED Vital Signs: Vital Signs - 24 hr 09/11/25 12:37 Temperature 97.3 F Pulse Rate 70 Respiratory Rate 20 Blood Pressure 120/58 L Pulse Oximetry 97 Oxygen Delivery Method Room Air BMI result Body Mass Index 29.1 GENERAL APPEARANCE: ?AxOx4, non-toxic appearing, no acute distress. HEENT: ?NC, AT. MMM. EOMI, clear conjunctiva, oropharynx mildly erythematous, without edema, no uvular edema, uvula is midline, no tonsillar edema or exudates noted, patient tolerating oral secretions and talking in full complete sentences, patient does have loss of voice. B/L Tympanic membranes without erythema, air-fluid levels, bulging, appropriate light reflex NECK: ?Supple without lymphadenopathy.? No stiffness or restricted ROM. HEART:? Normal rate and regular rhythm, normal S1/S2, no m/r/g LUNGS:? CTAB, moving air well. No crackles or wheezes are heard. ABDOMEN: ?Soft, nontender, nondistended with good bowel sounds heard. BACK: No CVAT, no obvious deformity. EXTREMITIES: ?Without cyanosis, clubbing or edema. NEUROLOGICAL: ?Grossly nonfocal. Alert and oriented, moving all 4 extremities. Observed to ambulate with normal gait. Skin: ?Warm and dry without any rash. Course Course Course Narrative: This is a Rapid Medical Examination (RME) performed by Tanya Aaron PA-C in triage. Full HPI, ROS, assessment and treatment plan per primary provider in the Main ED. Hx: 80 yo M here for eval of sore throat, sinus pain, nasal congestion, cough productive of brown sputum x1.5 weeks. evaluated at [facility]/ [facility]. reports continued sx. PE/vitals: hoarse voice, posterior oropharynx erythematous Plan: labs, viral/strep swabs, cxr Medical Decision Making Medical Decision Making MDM Narrative: 80-year-old male with medical history of HTN, HLD, Presents to ED due to 10 days of worsening nasal congestion, and productive cough. Patient states he went to [place] urgent care 4 days ago on 09/07 and was discharged with preston pedro. Patient now with laryngitis, mild discomfort when looking laterally with left eye, and pressure within the maxillary sinuses. VS on initial observation-BP 120/58, pulse rate of 70, respiratory rate of 20, afebrile with oral temp of 97.3?, O2 saturation 97% on room air. Labs without leukocytosis/leukopenia, normocytic stable anemia with a hemoglobin of 12.8, hematocrit of 38.6. Viral serology negative, rapid strep negative. CXR WNL Patient with 10 days of worsening productive cough, and nasal congestion now with pressure of the maxillary sinuses, and very mild discomfort when left eye is looking laterally. Patient is afebrile, without hypoxia, tachycardia or tachypnea, no headaches or visual changes. Patient's symptoms most likely due to sinusitis, and bacterial bronchitis versus atypical pneumonia. I discussed with the patient possible CT head/brain for further evaluation since he is having ocular pain, and sinus pressure however patient would like to go home with antibiotics, and return back to the emergency department if his symptoms get worse. Patient has follow up with his primary care doctor. Patient feels well enough to go home for self care. I have reveiwed strict return precautions with the patient. THe patient and his are in agreement with the plan. Differential Diagnosis Differential Diagnoses: The differential diagnosis associated with the presentation includes COVID Flu RSV Strep pharyngitis Viral illness Bacterial bronchitis Atypical pneumonia Sinusitis Admission/Observation Consideration of admission/observation: Escalation of care including admission/observation considered Lab Data MDM Lab Attestation statement: I reviewed the patient's lab results. 09/11/25 13:17 09/11/25 13:17 Labs: Lab Results 09/11/25 09/11/25 09/11/25 Range/Units 13:13 13:14 13:17 WBC 7.7 (4.8-10.8) X10*3/uL RBC 4.45 L (4.60-5.80) X10*6/uL Hgb 12.8 L (14.0-18.0) g/dl Hct 38.6 L (42.0-52.0) % MCV 86.7 (80.0-98.0) fL MCH 28.8 (27.0-33.0) pg MCHC 33.2 (31.0-36.0) g/dl RDW 12.9 (11.0-16.0) % Plt Count 220 (160-400) X10*3/uL MPV 8.9 L (9.4-12.4) fL Immature Gran % (Auto) 0.3 (0.0-0.4) % Neut % (Auto) 69.1 (45-73) % Lymph % (Auto) 15.9 L (20-40) % [place] % (Auto) 10.7 (2-11) % Eos % (Auto) 3.5 (0-4) % Baso % (Auto) 0.5 (0-2) % Lymph # (Auto) 1.2 (1.2-4.9) X10*3/uL [place] # (Auto) 0.8 (0.1-1.2) X10*3/uL Eos # (Auto) 0.3 (0.0-0.4) X10*3/uL Baso # (Auto) 0.0 (0.0-0.2) X10*3/uL Abs Immat Gran (auto) 0.02 (0.00-0.03) X10*3/uL Absolute Neuts (auto) 5.3 (2.0-8.3) x10*3/uL Absolute Nucleated RBC 0.000 (0.0-0.012) X10*3/uL Nucleated RBC % (auto) 0.0 (0.0-0.2) /100WBC Sodium 140 (135-145) mmol/L Potassium 4.4 (3.3-5.1) mmol/L Chloride 103 (96-108) mmol/L Carbon Dioxide 29 (22-29) mmol/L Anion Gap 12 (12-20) BUN 21 H (9-16) mg/dL Creatinine 1.20 (0.5-1.4) mg/dL Estim Creat Clear Calc 55.1 Estimated GFR 58 Random Glucose 207 H (60-115) mg/dL Calcium 9.9 (8.4-10.2) mg/dL Magnesium 2.0 (1.6-2.6) mg/dL Total Bilirubin 0.9 (0.0-1.0) mg/dL AST 20 (5-37) U/L ALT 18 (0-40) U/L Alkaline Phosphatase 84 (39-117) U/L Total Protein 6.9 (6.5-8.0) g/dL Albumin 4.4 (3.5-5.0) g/dL Influenza Type A (PCR) NEGATIVE (Negative) Influenza Type B (PCR) NEGATIVE (Negative) RSV RNA Qual (PCR) NEGATIVE (Negative) SARS-CoV-2 RNA (RT-PCR) NEGATIVE (Negative) S. pyogenes GrpA CRIS Negative (Negative) Independent Interpretation I performed an independent interpretation of an: Plain X-Ray Interpretation: I personally interpreted the CXR which was negative for infiltrates, consolidations, cardiomegaly, pneumothorax, pulmonary edema, pleural effusion, I agree with the radiologist's interpretation. Radiology Impression Discussion of test interpretation with radiology: I have reviewed the radiologist's reading. Radiologist Impression: CXR Findings: No consolidation or effusion. Cardiac and mediastinal contours are stable, with stable ICD hardware.. Bones unremarkable. Impression: 1. No acute pulmonary disease. This document has been electronically signed by: Lawrence Webster MD on 09/11/2025 14:19:19 Dictated By: Lawrence Webster MD Signed By: <Electronically signed by Lawrence Webster MD in OV> 09/11/25 1419 Independent Historian Clinical information obtained from an independent historian. History obtained from or confirmed by: Spouse ( at bedside corroborating history) External Record Review External record reviewed: Inpatient record, Office record and Outpatient record Tests considered The following testing was considered but not selected: I considered CT head/brain due to patient having mild pain when looking laterally with the left eye however patient is afebrile, without leukocytosis, no headaches, or visual changes. I believe patient needs antibiotics for sinusitis at this time. Counseled patient on strict return precautions and agrees to come back if symptoms become worse and/or he experiences headache/visual changes. Patient has follow up with PCP. Discharge Plan Discharge Clinical Impression: Sinusitis, Upper respiratory infection Patient Disposition: Home, Self-Care Additional Instructions: You were evaluated in the emergency department due to 10 days of productive cough, and nasal congestion. Your lab work was reassuring as you did not have a significant elevation or decrease in your white blood cell count indicative of systemic infection. Your chest x-ray did not show infiltrates or consolidations consistent with pneumonia. You are being prescribed a 7 day course of Augmentin which is an antibiotic to cover for sinusitis, and 7 day course of azithromycin to cover for upper respiratory infection. Please complete the entire course of these medications. To manage fever and/or sinus pressure and pain at home you can take 500 mg of Tylenol, you are on blood thinners so I do not recommend taking ibuprofen. Augmentin can cause loose stools, please take this medication with food to prevent GI upset. Please follow up with your primary care doctor to ensure resolution of your symptoms. Please return to the emergency department if you experience fevers over 100.4?, worsening pain of your left eye, headaches, visual changes, chest pain, shortness of breath, worsening cough, difficulty breathing, or any new/worsening/concerning symptoms. Prescriptions: New amoxicillin-pot clavulanate 875-125 mg tablet 1 tab PO BID 7 Days Qty: 14 0RF azithromycin 500 mg tablet See Rx Instructions .ROUTE .COMPLEX Qty: 9 0RF Rx Instructions: For 250 mg dose pack: take 500 mg today (day 1), then 250 mg for 4 days (days 2-5) No Action amoxicillin-pot clavulanate 875-125 mg tablet 1 tab PO BID Qty: 14 0RF codeine-guaifenesin 10-100 mg/5 mL liquid 10 ml PO Q6H PRN (Reason: cough) Qty: 118 0RF codeine-guaifenesin 10-100 mg/5 mL liquid 10 ml PO Q6H PRN (Reason: cough) Qty: 118 0RF oxycodone 5 mg tablet 5 mg PO Q6H PRN (Reason: pain) Qty: 14 0RF Rx Instructions: Partial Fill upon patient request. cyclobenzaprine 5 mg tablet 5 mg PO TID PRN (Reason: muscle spasm) Qty: 14 0RF Print Language: Portuguese
--- OUTSIDE RECORDS SUMMARY | 2025-09-11 13:16 | XMS_ITS | Clinical Summary ---
Author Organization [facility] [address] [facility] Address [address] [facility] [place] [address] Phone Care Team Providers Care [employer] Name Role Phone Michael Ron MD Primary Care Provider [phone] Allergies Active Allergy Reactions Criticality Noted Date Comments Latex 03/19/2008 Morphine 07/24/2005 Morphine Sulfate-Nacl Medications blood sugar diagnostic (FreeStyle Lite Strips) test strip Prescribed in Endocrinology [facility] 11/14/19 24 Active FREESTYLE LANCETS MISC Prescribed in Endocrinology [facility] 11/14/19 24 Active multivitamin (MULTIPLE VITAMINS ORAL) OTC Active nitroglycerin (NITROSTAT) 0.[address] 1 tablet (0.4 mg total) under the tongue every 5 (five) minutes if needed for chest pain. Prescribed in Cardiology 06/07/20 20 Active blood-glucose meter kit Prescribed in Endocrinology [facility] 01/18/20 20 Active aspirin 81 mg EC tablet Take 1 tablet (81 mg total) by mouth 1 (one) time each day. OTC 10/19/19 15 Active warfarin (COUMADIN) 5 mg tablet TAKE 1 TABLET BY MOUTH DAILY AT THE SAME TIME DAILY DIRECTED BY ANTICO CLINIC. MAY CAUSE HEAVY BLEEDING. DO NOT CHANGE DIETARY HABITS 90 tablet 05/20/20 25 Active carvediloL (COREG) 25 mg tablet TAKE 1 TABLET BY MOUTH TWICE A DAY WITH FOOD 180 tablet 1 06/08/20 25 Active lisinopril (PRINIVIL,ZES TRIL) 40 mg tablet TAKE 1 TABLET BY MOUTH DAILY 90 tablet 1 06/17/20 25 Active simvastatin (ZOCOR) 10 mg tablet TAKE 1 TABLET BY MOUTH AT BEDTIME 90 tablet 1 06/17/20 25 Active omeprazole (PriLOSEC) [address] capsule TAKE 1 CAPSULE BY MOUTH DAILY 90 capsule 1 07/21/20 25 Active hydroCHLOROth iazide (HYDRODIURIL) 25 mg tablet TAKE 1 TABLET BY MOUTH ONCE DAILY 90 tablet 1 07/29/20 25 Active metFORMIN XR (GLUCOPHAGE-X R) 500 mg 24 hr tablet TAKE 1 TABLET BY MOUTH TWICE DAILY WITH BREAKFAST AND DINNER 180 tablet 1 08/04/20 Active pen needle, diabetic (BD Ultra-Fine Short Pen Needle) 31 gauge x 5/16 needle Use to inject once daily as directed 100 each 2 08/25/20 Active insulin glargine (Lantus Solostar U-100 Insulin) 100 unit/mL (3 mL) injection pen Use 10 units at bedtime, increase by 2 units every 3 days with max dose of 20 units, if fasting sugars remain over 130 45 mL 1 08/25/20 Active levothyroxine (SYNTHROID, LEVOTHROID) 25 mcg tablet TAKE 1 TABLET SATURDAY THROUGH SATURDAY, 2 TABLETS SATURDAY THROUGH SATURDAY. 126 tablet 1 08/31/20 Active benzonatate (TESSALON) 100 mg capsule Take 1 capsule (100 mg total) by mouth 3 (three) times a day if needed for cough. Do not crush or chew. 42 capsule 09/07/20 25 2024 Active empagliflozin (JARDIANCE) 10 mg tablet Take 1 tablet once daily 30 tablet 3 01/27/20 25 2024 Discontinued(C ost of medication) levothyroxine (SYNTHROID, LEVOTHROID) 25 mcg tablet TAKE 1 TABLET BY MOUTH DAILY SATURDAY-SATURDAY AND TAKE 2 TABLETS ON SATURDAY, SATURDAY AND SUNDAYS. 120 tablet 1 06/03/20 25 2024 Discontinued glipiZIDE (GLUCOTROL) 5 mg tablet TAKE 1 TABLET BY MOUTH TWICE A DAY BEFORE BREAKFAST AND BEFORE DINNER. 180 tablet 1 06/07/20 25 2024 Discontinued predniSONE (DELTASONE) 20 mg tablet Take 60 mg PO daily for 3 days, then take 40 mg PO daily for 3 days, then 20 mg PO daily for 3 days, then stop 18 tablet 06/10/20 25 2024 Discontinued(T herapy completed) insulin glargine (Lantus Solostar U-100 Insulin) 100 unit/mL (3 mL) injection pen Use 10 units at bedtime, increase by 2 units every 3 days with max dose of 20 units, if fasting sugars remain over 130 15 mL 2 08/19/20 25 2024 Discontinued(R eorder) pen needle, diabetic (BD Ultra-Fine Short Pen Needle) 31 gauge x 5/16 needle Use to inject once daily as directed 100 each 2 08/19/20 25 2024 Discontinued(R eorder) benzonatate (TESSALON) 100 mg capsule Take 1 capsule (100 mg total) by mouth 3 (three) times a day if needed for cough. Do not crush or chew. 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 ([facility] V24, [facility] V28) 06/07/2025 Implantable cardioverter-def ibrillator (ICD) at end of device life 11/11/2024 Tendinitis of right rotator cuff 09/07/2024 Atrial fibrillation ([facility] V24, [facility] V28) 1 10/31/2023 Assessment & Plan (05/12/2025 5:36 AM EDT): Orders: ECG 12 lead skilled nursing (current) use of anticoagulants 2023 Hypothyroidism 07/21/2024 Thyroid nodule 07/21/2024 Elevated TSH 02/12/2024 Prostate cancer ([facility] V24, [facility] V28) 10/10 Overview (08/07/2024): Follows with Dr. Tobias. Pt decided on active surveillance. Following with urology every 6 months. Nonrheumatic mitral valve regurgitation 06/12/20 Permanent atrial fibrillation ([facility] V24, [facility] V28) 06/12/2023 SOB (shortness of breath) 06/12/2023 VT (ventricular tachycardia) ([facility] V24, [facility] V28) 06/12/2023 Obstructive sleep apnea 09/14/2019 Overview (08/07/2024): [facility] Home Sleep Apnea Test: Date 09/08/2019; Wt 119#; BMI 20; AKILA 22, AI 19; HI 4; Unclassified apneas 0; Obstructive apneas 68; Central apneas 18; Mixed apneas 1; hypopneas 14; average oxygen saturation 94% (lowest 82% without saturations <88% for 5% or more of study) - Obstructive Sleep Apnea - moderate; mostly obstructive apneas with frequent central apneas; without sleep related hypoventilation by 2018 home sleep apnea test. 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, controlled ([facility] [place]24, [facility] V28) 07/08/2016 Brugada syndrome 05/11/2016 Assessment & Plan (05/12/2025 5:36 AM EDT): Sick sinus syndrome ([facility] [place] V24, [facility] [place] V28) 0 05/11/2016 Solitary pulmonary nodule 02/17/2015 Overview (08/07/2024): 4 mm rul, [facility] cat scan 01/04/2014, repeat 3-15 w/o change, never smoker Enlarged thoracic aorta ([facility] V24) 12/24/2013 Lipoma of arm 07/01/2012 Urinary retention 06/13/2011 Chronic cholecystitis 06/01/2011 Abdominal wall mass 11/24/2010 Chronic low back pain 11/14/2010 Chronic sciatica 11/14/2010 Spondylolysis 11/14/2010 Essential hypertension, benign 11/08/2006 Diverticulitis of colon without hemorrhage 07/24 Esophageal reflux 07/24/2005 Mixed hyperlipidemia 07/24/2005 Benign prostatic hyperplasia 01/10/2005 Overview (08/07/2024): IMO update Coronary atherosclerosis of [place] coronary carson ry 01/10/2005 Syncope and collapse 01/10/2005 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 Encounters Date Type Department Care Team Description 09/08/2025 Telephone Adult Medicine [address] [phone] Jenny Hernández NP 09/07/2025 9:30 AM EST Office Visit Adult Medicine [address] [phone] Jenny Hernández NP Viral infection (Primary Dx); 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 (CMS/HCC V24, CMS/HCC V28); Stage 3a chronic kidney disease (CMS/HCC V24, CMS/HCC V28); Essential hypertension, benign; Back pain of lumbar region with sciatica; Hypothyroidism, unspecified type; Permanent atrial fibrillation (CMS/HCC V24, CMS/HCC V28) 08/25/2025 Results Follow-Up [facility] - [address] [phone] Hilda Lozano PA 08/19/2025 9:45 AM EST Office Visit Endocrinology [address] [phone] Hilda Lozano PA Type 2 diabetes with peripheral circulatory disorder, controlled (CMS/HCC V24, CMS/HCC V28) (Primary Dx); Essential hypertension, benign; Mixed hyperlipidemia; Hypothyroidism, unspecified type 08/13/2025 10:45 AM EDT Lab [facility] - [address] Mixed hyperlipidemia; Essential hypertension, benign; Hypothyroidism, unspecified type; Type 2 diabetes with peripheral circulatory disorder, controlled (CMS/HCC V24, CMS/HCC V28); Permanent atrial fibrillation (CMS/HCC V24, CMS/HCC V28); 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 from Last 3 Months Immunizations Immunization Administration Dates Next Due H1N1 Inj Preservative Free 09/18/2009 Influenza trivalent, 0.5mL ( Fluad) 65yo and older 07/15/2020,08/21/2019,07/11/2018,06/30,07/22/2016,07/06/2015,08/27/2013 ,09/03/2012,08/25/2010,09/18/2009 Influenza trivalent, 0.5mL ( Fluzone High-dose) 65yo and older 08/18/2024 Influenza trivalent, 0.5mL, preservative free (Fluarix; FluLaval; Fluzone) ages 6mo and older (Afluria) 3 years and older 10/03/2011,08/05/2008 Influenza, Unspecified 08/02/2023,2021,08/04/2021,09/13 Moderna SARS-CoV-2 COVID-19, mRNA, LNP-S, preservative free 09/17/2022 Pfizer SARS-CoV-2 COVID-19, mRNA, LNP-S, preservative free 08/02/2023,08/04/2021,02/07/2021,01/16 Pneumococcal conjugate 13 va lent (Prevnar 13, PCV13) 2mo and older 10/20/2015 Pneumococcal polysaccharide 23 valent (Pneumovax 23) 2yo and older 01/29/2012 Td Tetanus diptheria (Tdvax) 7yo and older 08/01/2007,07/28/1997 Tdap Tetanus diptheria acell ular pertussis (Boostrix; Adacel) 7yo and older 04/15/2014 Zoster Live 12/27/2011 Surgical History Surgery Date Site/Laterality Comments COLONOSCOPY 06/28/2003 PROCEDURE: HISTORICAL COLONOSCOPY; COMMENT: diverticulosis; no polyps CARPAL TUNNEL RELEASE PROCEDURE: PA NEUROPLASTY &/TRANSPOS MEDIAN NRV CARPAL TUNNE OTHER SURGICAL HISTORY 1990 PROCEDURE: PA ANES HERNIA REPAIR UPPER ABDOMEN OMPHALOCELE KNEE ARTHROSCOPY W/ MENISCAL REPAIR PROCEDURE: PA ARTHROSCOPY KNEE W/MENISCUS RPR MEDIAL/LATERAL OTHER SURGICAL HISTORY 11/24/01 PROCEDURE: UPPER GASTROINTESTINAL ENDOSCOPY IN CARDIAC CATHETERIZATION PROCEDURE: HISTORICAL CARDIAC CATH MOLE REMOVAL PROCEDURE: HISTORICAL MOLE (REMOVAL OF); COMMENT: Dysplastic nevus 12/21 (moderate atypia) 12/20 back (mild atypia) COLONOSCOPY 11/09/1997 PROCEDURE: HISTORICAL COLONOSCOPY; COMMENT: one 5 mm tubular adenoma at 25 cm. COLONOSCOPY 05/19/2014 PROCEDURE: PA COLONOSCOPY FLX DX W/COLLJ SPEC WHEN PFRMD; COMMENT: no polyps CHOLECYSTECTOMY 2011 PROCEDURE: HISTORICAL CHOLECYSTECTOMY Medical History Medical History Date Comments Diverticulosis of colon (wit hout mention of hemorrhage) DX:Diverticulosis of colon ( without mention of hemorrhage) Unspecified hypertensive hea rt disease with heart failure(402.91) DX:Unspecified hype rtensive heart disease with heart failure(402.91) Esophageal reflux DX:Esophageal reflux Mixed hyperlipidemia DX:Mixed hy perlipidemia Hypertrophy (benign) of prostate 01/10/05 DX:Hypertrophy (benign) of prostate Coronary atherosclerosis of [place] coronary artery 01/10/05 DX:Coronary atherosclerosis of [place] coronary artery Syncope and collapse 01/10/05 DX:Syncope and collapse Plantar fascial fibromatosis 04/20/04 DX: Plantar fascial fibromatosis Coronary atherosclerosis of [place] coronary artery 01/10/2005 DX:Coronary atherosclerosis of [place] coronary artery Syncope and collapse 01/10/2005 DX:Syncope and collapse Essential hypertension, benign 11/08/2006 D X:Essential hypertension, benign AICD (automatic cardioverter/defibrillator) present 02/10/2008 DX:AICD (automatic cardioverter/defibrillator) present Nevus, non-neoplastic DX:Nevus, non-neoplastic History of dysplastic nevus 12/29/2008 DX:H istory of dysplastic nevus; COMMENT: Dysplastic nevus 3/10 (moderate atypia) 12/20 back (mild atypia) History of actinic keratoses 12/30/2014 DX: History of actinic keratoses; COMMENT: Actinic keratosis Family history of malignant melanoma of skin DX:Family history of maligna nt melanoma of skin; COMMENT: Family history of malignant melanoma Daughter right thigh x 1 and back x 2 Family history of malignant melanoma of skin 05/17/2016 DX:Family history of maligna nt melanoma of skin; COMMENT: Family history of malignant melanoma Daughter right thigh x 1 and back x 2 Family History Medical History Relation Name Comments Lung cancer Brother multiple sclero sis Melanoma Daughter Stroke Father Other: multiple sclerosis Mother de ceased Ovarian cancer Mother Coronary artery disease Neg Hx no p remature coronary disease or sudden Relation Name Status Comments Brother Daughter Father Mother Social History Tobacco Use Types Packs/Day Years [...] for your loved ones. For example, child care nurse or elderly care for an older adult? [...] not to disclose 2023 11:43 AM EST Obstetrics History Last Filed Vital Signs Vital Sign Reading Time Taken Comments Blood Pressure 138/75 09/07/2025 9:38 AM EST Pulse 62 09/07/2025 9:38 AM EST Temperature 36.3 C (97.3 F) 09/07/2025 9:38 AM EST Respiratory Rate 14 08/19/2025 9:55 AM EST Oxygen Saturation 97% 09/07/2025 9:38 AM EST Inhaled Oxygen Concentration - - Weight 88.9 kg (196 lb) 09/07/2025 9:38 AM EST Height 175.3 cm (5' 9 ) 09/07/2025 9:38 AM EST Body Mass Index 28.94 09/07/2025 9:38 AM EST Plan of Treatment Upcoming Encounters Date Type Department Care Team (Late st Contact Info) Description 09/13/2025 9:00 AM EST [facility] [phone] 09/20/2025 9:00 AM EST Office Visit [place] [facility] [address] [place] [phone] Hilda Lozano PA [address] [place] [address] 11/11/2025 9:40 AM EST Office Visit [facility] [address] [phone] Mirian Benitez PA [address] [place] [address] [place] [phone] 12/15/2025 2:45 PM EST Office Visit Adult Medicine [place] [address] [phone] Michael Ron MD [address] [place] [address] 12/29/2025 1:30 PM EDT Ancillary Procedure [facility] [address] [phone] Health Maintenance Due Date Last Done Comments Diabetes: Annual Foot Exam 1955 Zoster Vaccines (1 of 2) 02/21/2012 12/27/2011 RSV Immunization Adult Patients (1 - 1-dose 75+ series) 2021 Falls Risk Assessment 09/22/2022 Medicare Annual Wellness Visit 09/22/2022 DTaP,Tdap,and Td Vaccines (4 - Td or Tdap) 04/15/2024 04/15/2014, 08/01/2007, 07/28/1997 COVID-19 Vaccine ( season) 2025 08/02/2023, 09/17/2022, 08/04/2021, Additional history exists Influenza Vaccine (#1) 2025 , 08/02/2023, 09/17/2022, Additional history exists Diabetes: Annual Urine Albumin-Creatinine Ratio (uACR) 10/23/2025 10/23/2024, 10/11/2023 Diabetes: Annual Retina Eye Exam 12/14/2025 12/14/2024 Diabetes: Blood Sugar Control Test (HGBA1C) 02/10/2026 08/13/2025, 01/21/2025, 10/23/2024, Additional history exists Diabetes: Annual GFR (Glomerular Filtration Rate) 08/13/2026 08/13/2025, 11/27/2024, 10/23/2024, Additional history exists Hypertension/CHF/CAD Annual BMP Blood Test 08/13/2026 08/13/2025, 11/27/2024, 10/23/2024, Additional history exists Social Influencers of Health Screening 09/07/2026 09/07/2025 Cholesterol Screening (Lipid Panel) 08/13/2030 08/13/2025, 07/14/2024, 07/14/2024 Hepatitis C Screening Completed 04/14/2013 Pneumococcal Vaccine: 50+ Years Completed 10/20/2015, 01/29/2012 Depression Screening Completed 09/07/2025, 06/06/20 24 HIB Vaccines Aged Out No longer eligi ble based on patient's age to complete this topic HPV Vaccines Aged Out No longer eligi ble based on patient's age to complete this topic Hepatitis A Vaccines Aged Out No long er eligible based on patient's age to complete this topic Hepatitis B Vaccines Aged Out No long er eligible based on patient's age to complete this topic IPV Vaccines Aged Out No longer eligi ble based on patient's age to complete this topic MMR Vaccines Aged Out No longer eligi ble based on patient's age to complete this topic Meningococcal ACWY Vaccine Aged Out N o longer eligible based on patient's age to complete this topic Meningococcal B Vaccine Aged Out No l onger eligible based on patient's age to complete this topic RSV Immunization Patients Under 20 months Aged Out No longer eligible based on patient's age to complete this topic Varicella Vaccines Aged Out No longer eligible based on patient's age to complete this topic Medical Devices Implanted Type Area Brilliandeer Lopper Device Identifier Shelf Expiration Date Model / Serial / Lot Medt-Card Evera Xt [id number] Implanted:07/15 (Quantity not on file) Explanted:11/15 by Tsering Hale MD (Quantity not on file) Cardiac ICD Left: Chest [employer] - CARDIAC RHYTH-CRDM EVERA XT [id number] / [id number] / Cardiac Icd-12/03/2024 Implanted:11/15 by Tsering Hale MD (Quantity not on file) Cardiac ICD Left: Chest [employer] - CARDIAC RHYTH-CRDM [place] [id number] / [id number] / Medt-Card [id number] Implanted:11/15 (Quantity not on file) Cardiac ICD [employer] - CARDIAC RHYTH-CRDM [id number] / [id number] / Procedures Procedure Name Priority Date/Time Associated Diagnosis Comments PROTHROMBIN TIME WITH INR Routine 08/13/2025 10:55 AM EDT Permanent atrial fibrillation (CMS/HCC V24, CMS/HCC V28) 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 HEMOGLOBIN A1C Routine 08/13/2025 10:55 AM EDT Type 2 diabetes with peripheral circulatory disorder, controlled (CMS/HCC V24, CMS/HCC V28) THYROID STIMULATING HORMONE WITH REFLEX TO FREE T4 AND FREE T3 Routine 08/13/2025 10:55 AM EDT Hypothyroidism, unspecified type BASIC METABOLIC PANEL Routine 08/13/2025 10:55 AM EDT Essential hypertension, benign LIPID PANEL WITH REFLEX TO DIRECT LDL Routine 08/13/2025 10:55 AM EDT Mixed hyperlipidemia CARDIAC DEVICE CHECK- REMOTE- MURJ Routine 07/30/2025 2:12 AM EDT POC PROTIME INR BLOOD Routine 07/23/2025 8:59 AM EDT Permanent atrial fibrillation (CMS/HCC V24, CMS/HCC V28) skilled nursing (current) use of anticoagulants POC PROTIME INR BLOOD Routine 06/25/2025 Permanent atrial fibrillation ([facility] V24, [facility] V28) skilled nursing (current) use of anticoagulants EXTERNAL DIABETIC RETINA EYE EXAM 12/14/2024 MICROALBUMIN CREATININE URINE RATIO Routine 10/23/2024 1:59 PM EST Essential hypertension, benign Type 2 diabetes with peripheral circulatory disorder, controlled ([facility]/HCC V24, [facility] V28) Hypothyroidism, unspecified type Mixed hyperlipidemia skilled nursing (current) use of anticoagulants Atrial fibrillation ([facility] V24, [facility] V28) Urinary retention DEPRESSION SCREENING Routine 06/06/2024 HEPATITIS C SCREENING Routine 04/14/2013 from Last 3 Months or Most Recently Relevant to Health Maintenance Results * Thyroid stimulating hormone with reflex to free t4 and free t3 (08/13/2025 10:55 AM EDT) Pathologist [facility] TSH 3.77 0.40 - 4.00 mcIU/mL LAB CHEMISTRY METHOD 08/13/2025 4:15 PM EDT [facility] Blood Venous blood specimen / Unknown Venipuncture / Unknown 08/13/2025 10:55 AM EDT 08/13/2025 10:55 AM EDT us Hilda RENEE LAB BLOOD ORDERABLES Final Resul t [facility] [address] [place] [address], * Lipid panel with reflex to direct LDL (08/13/2025 10:55 AM EDT) Cholesterol 129 0 - 200 mg/dL LAB CHEMISTRY METHOD 08/13/2025 4:09 PM EDT [facility] Triglycerides 123 0 - 150 mg/dL LAB CHEMISTRY METHOD 08/13/2025 4:09 PM EDT [facility] HDL 49 >=40 mg/dL LAB CHEMISTRY METHOD 08/13/2025 4:09 PM EDT [facility] LDL Calculated 55 0 - 100 mg/dL LAB CHEMISTRY METHOD 08/13/2025 4:09 PM EDT [facility] Comment:Estimated LDL Calcul ated using equation: Total cholesterol - HDL cholesterol - (Triglycerides/5) VLDL Cholesterol Shiva 24.6 mg/dL LAB CHEMISTRY METHOD 08/13/2025 4:09 PM EDT [facility] Non HDL Chol. (LDL+VLDL) 80 <145 mg/dL LAB CHEMISTRY METHOD 08/13/2025 4:09 PM EDT [facility] Chol/HDL Ratio 2.6 0.0 - 4.4 LAB CHEMISTRY METHOD 08/13/2025 4:09 PM EDT [facility] Blood Venous blood specimen / Unknown Venipuncture / Unknown 08/13/2025 10:55 AM EDT 08/13/2025 10:55 AM EDT us Hilda RENEE LAB BLOOD ORDERABLES Final Resul t [facility] [address] [place] [address], [place] [phone] * (ABNORMAL) Prothrombin time with INR (08/13/2025 10:55 AM EDT) Protime 24.4(H) 10.6 - 13.9 sec LAB COAGULATION METHOD 08/13/2025 12:18 PM EDT [facility] INR 2.0 LAB COAGULATION METHOD 08/13/2025 12:18 PM EDT [facility] Blood Venous blood specimen / Unknown Venipuncture / Unknown 08/13/2025 10:55 AM EDT 08/13/2025 10:55 AM EDT us Michael Ron MD LAB BLOOD ORDERABLES Final Resul t [facility] [address] [place] [address], [place] [phone] * (ABNORMAL) Hemoglobin A1c (08/13/2025 10:55 AM EDT) [facility] Hemoglobin A1C 10.2(H) <6.5 % LAB CHEMISTRY METHOD 08/13/2025 2:43 PM EDT [facility] Mean Bld Glu Estim. 246 mg/dL LAB CHEMISTRY METHOD 08/13/2025 2:43 PM EDT [facility] Blood Venous blood specimen / Unknown Venipuncture / Unknown 08/13/2025 10:55 AM EDT 08/13/2025 10:55 AM EDT us Hilda RENEE LAB BLOOD ORDERABLES Final Resul t [facility] [address] [place] [address], [place] [phone] * (ABNORMAL) Basic metabolic panel (08/13/2025 10:55 AM EDT) [facility] Sodium 137 133 - 145 mmol/L LAB CHEMISTRY METHOD 08/13/2025 4:09 PM [facility] Potassium 4.0 3.5 - 5.5 mmol/L LAB CHEMISTRY METHOD 08/13/2025 4:09 PM [facility] Chloride 104 96 - 110 mmol/L LAB CHEMISTRY METHOD 08/13/2025 4:09 PM [facility] CO2 25 21 - 32 mmol/L LAB CHEMISTRY METHOD 08/13/2025 4:09 PM [facility] Anion Gap 8 3 - 11 LAB CHEMISTRY METHOD 08/13/2025 4:09 PM [facility] Glucose 224(H) 70 - 100 mg/dL LAB CHEMISTRY METHOD 08/13/2025 4:09 PM [facility] BUN 19 5 - 25 mg/dL LAB CHEMISTRY METHOD 08/13/2025 4:09 PM EDT [facility] Creatinine 1.32(H) 0.70 - 1.30 mg/dL LAB CHEMISTRY METHOD 08/13/2025 4:09 PM EDT [facility] eGFR 55(L) >=60 mL/min/1. 73m2 LAB CHEMISTRY METHOD 08/13/2025 4:09 PM EDT [facility] Comment:Calculation based on the Chronic Kidney Disease Epidemiology Collaboration (CKD-EPI) equation refit without adjustment for race. BUN/Creatinine Ratio 14.4 LAB CHEMISTRY METHOD 08/13/2025 4:09 PM EDT [facility] Calcium 9.1 8.5 - 10.5 mg/dL LAB CHEMISTRY METHOD 08/13/2025 4:09 PM EDT [facility] Blood Venous blood specimen / Unknown Venipuncture / Unknown 08/13/2025 10:55 AM EDT 08/13/2025 10:55 AM EDT us Hilda RENEE LAB BLOOD ORDERABLES Final Resul t [facility] [address] [place] [address], * Cardiac device check - Remote- MURJ (07/30/2025 2:12 AM EDT) Date Time Interrogation Session [id number] CV DEVICE CHECK Type Interrogation Session Remote CV DEVICE CHECK Implantable Pulse Generator Brilliandeer Lopper MDT CV DEVICE CHECK Implantable Pulse Generator Type ICD CV DEVICE CHECK Implantable Pulse Generator Model [id number] CV DEVICE CHECK Implantable Pulse Generator Serial Number [id number] CV DEVICE CHECK Implantable Pulse Generator Implant Date 20241203 CV DEVICE CHECK Battery Remaining Longevity 127.0 CV DEVICE CHECK Battery Voltage 2.990 CV D EVICE CHECK Battery [employer] WORKER Trigger 2.800 CV DEVICE CHECK Capacitor Charge Time 3.800 CV DEVICE CHECK Lauro Statistic RV Percent Paced 29.11 CV DEVICE CHECK Atrial Tachy Statistic AT/AF [place] Percent 100.00 CV DEVICE CHECK Lead Channel Sensing Intrinsic Amplitude 0.500 CV DEVICE CHECK Lead Channel Setting Sensing Sensitivity 0.15 CV DEVICE CHECK Lead Channel Impedance Value 285 CV DEVICE CHECK Lead Channel Sensing Intrinsic Amplitude 6.900 CV DEVICE CHECK Lead Channel Setting Sensing Sensitivity 0.30 CV DEVICE CHECK Lead Channel Impedance Value 285 CV DEVICE CHECK Lead Channel Pacing Threshold Amplitude 0.875 CV DEVICE CHECK Lead Channel Pacing Threshold Pulse Width 0.4 CV DEVICE CHECK Lead Channel RV Pacing Threshold Date 2025-07-25 CV DEVICE CHECK Lead Channel Setting Pacing Amplitude 2.000 CV DEVICE CHECK Lead Channel Setting Pacing Pulse Width 0.4 CV DEVICE CHECK Lauro Setting Mode (NBG Code) VVI CV DEVICE CHECK Lauro Setting Lower Rate Limit 60 CV DEVICE CHECK Lauro Setting AT Mode Switch Rate 171 CV DEVICE CHECK Therapy Statistic Recent Shocks Delivered 0 CV DEVICE CHECK Therapy Statistic Recent Shocks Aborted 0 CV DEVICE CHECK Therapy Statistic Recent ATP Delivered 0 CV DEVICE CHECK SVC Measured Impedance 38 CV DEVICE CHECK Zone Setting Type Category AT/AF CV DEVICE CHECK Rate 171 CV DEVICE CHECK Therapies All Rx Off CV DEVICE CHECK Zone Setting Status Monitor CV DEVICE CHECK Zone ID 2 CV DEVICE CHECK Zone Setting Type Category VF CV DEVICE CHECK Rate 200 CV DEVICE CHECK Therapies ATP During Charging, 40.0Jx6 CV DEVICE CHECK Zone Setting Status On CV DEVICE CHECK Zone ID 3 CV DEVICE CHECK Zone Setting Type Category VT CV DEVICE CHECK Zone Setting Status Off CV DEVICE CHECK Zone ID 4 CV DEVICE CHECK Zone Setting Type Category VT CV DEVICE CHECK Zone Setting Status Off CV DEVICE CHECK Zone ID 5 CV DEVICE CHECK Zone Setting Type Category VT CV DEVICE CHECK Rate 150 CV DEVICE CHECK Rate 167 CV DEVICE CHECK Zone Setting Status ENABLED CV DEVICE CHECK Zone ID 6 CV DEVICE CHECK Date of Service 2025-08-11 CV DEVICE CHECK Anatomical Region Laterality Modality Device Interroga tion 07/25/2025 11:5 0 PM EDT Impressions 07/30/2025 1:53 AM EDT Normal Remote: No Events * Normal Device Function * Alerts or events: None * Battery: , 10.58 yrs * Sensing, impedance and thresholds reviewed * Programmed parameters reviewed * Presenting rhythm reviewed * Heart Rate Histograms reviewed * No significant changes noted Heart Failure Diagnostic: Stable * Heart failure diagnostics assessed through the device * Status: Stable * No overt HF present Narrative Procedure Note Tsering Hale MD - 07/30/2025 IMPRESSION: Normal Remote: No Events * Normal Device Function * Alerts or events: None * Battery: , 10.58 yrs * Sensing, impedance and thresholds reviewed * Programmed parameters reviewed * Presenting rhythm reviewed * Heart Rate Histograms reviewed * No significant changes noted Heart Failure Diagnostic: Stable * Heart failure diagnostics assessed through the device * Status: Stable * No overt HF present Tsering Hale MD CV IMPLANTABLE CARDIAC DEV ICE PROCEDURES Final Result * POC Protime INR Blood (07/23/2025 8:59 AM EDT) Only the most recent of2 resultswithin the time period is included. Lot Number INR POC 2.0 Prothrombin Time POC Exp Date Blood 07/23/2025 8:59 AM EDT Michael Ron MD POINT OF CARE TEST ENTER/EDIT OR DERABLES Final Result * External Diabetic Retina Eye Exam Report (12/14/2024) Anatomical Region Laterality Modality Ultrasound us Provider [facility] IMG US PROCEDURES Final Result * Microalbumin creatinine urine ratio (10/23/2024 1:59 PM EST) Creatinine, Urine 49.0 mg/dL LAB CHEMISTRY METHOD 10/24/2024 4:04 AM EST [facility] Microalb, Ur 6.4 0.0 - 29.0 mg/L LAB CHEMISTRY METHOD 10/24/2024 4:04 AM EST [facility] Microalb/Creat Ratio 13 <30 mg/g creat LAB CHEMISTRY METHOD 10/24/2024 4:04 AM [facility] Urine Urine specimen obtained by clean catch procedure / Unknown Non-blood Collection / Unknown 10/23/2024 1:59 PM EST 10/23/2024 1:59 PM EST Michael Ron MD LAB URINE ORDERABLES Final Resul t [facility] [address] [place] [address], * Depression Screening (06/06/2024) Depression Screening abstracted us Historical Provider HEALTH MAINTENANCE Final Result * Hepatitis C Screening (04/14/2013) Hepatitis C Screening abstracted us Historical Provider HEALTH MAINTENANCE Final Result from Last 3 Months or Most Recently Relevant to Health Maintenance Insurance [employer] [employer] ADVANTAGE Care Teams [employer] [place] Relationship Specialty Start Date End Date Michael Ron MD [address] [place] [id number] PCP - General Internal Medicine 07/05/20
--- OUTSIDE RECORDS SUMMARY | 2025-09-11 13:16 | XMS_ITS | Encounter Summary ---
Author Organization [facility] Address [address] [place] [address] Care Team Providers Care Associate Professor Of Library Science Name Role Phone Michael Ron MD Primary Care Provider [phone] Reason for Visit * Reason Onset Date Comments Cough 09/08/2025 Encounter Details Date Type Department Care Team (Late st Contact Info) Description 09/08/2025 Telephone Adult Medicine [facility] [place] [address], [place] [phone] Jenny Hernández, [employer] WORKER [address], [place] Social History Tobacco Use Types Packs/Day Years Used Date Smoking Tobacco: Never Smokeless Tobacco: Never Alcohol Use Standard Drinks/Week Comments Yes 0 [...] Record ed Within the last 3 months, meenu simons many times did you visit the emergency [...] care for your loved ones. For example, children's attendant or elderly care for an older adult? [...] AM EST documented as of this encounter Progress Notes * Cynthia Omalley RN - 09/10/2025 1:08 PM EST Pt was seen this week continues to have cough and is feeling tired Deneis any chest wall pain with deep breath and cough, denies SOB, able to speak in full sentences and has no audible wheezing, using OTC meds and rx cough meds as directed with limited relief, coughis productive for green brown Sputum, denies fever (has not taken temp) able to take PO with no difficulty, denies N/V/D, Pt does not need antibiotics at this time based on visit Advised homecare following the cough Protocol. RN reinforced telephone consultation and advice. Reviewed with the patient the signs and symptoms to watch for that would require immediate attention. If symptoms change, worsen or increase in intensity, to call back immediately. Appointment * Milena Reinoso - 09/10/2025 12:53 PM EST Patient call requires triage: Symptoms patient is presenting: Patient was seen on 09/07/2025 with Jenny Hernández and was prescribed Benzonatate 100 mg capsule. States symptoms are worsening would like to see if an antibiotics canbe prescribed. Symptoms include: Mucous is brown, not sleeping well, cough, loss of voice. Took Covid-19 test and it came back negative on 09/08/2025 and on 09/09/2025 How long has patient had these symptoms?: 09/07/2025 For ALL patients calling to schedule any appointment (routine, sick visit, follow up, consult, etc.) in the outpatient setting please ask the following questions: Do you have fever of higher than 101, sore throat with difficulty swallowing or severe shortness ofbreath? Yes -sore throat and difficulty swallowing If YES to any of these above symptoms, send a message to triage and do not book. Red dot. If no, an audio or video visit should be booked. Have you had close contact with someone with Coronavirus in the last 14 days? no Have you traveled abroad? no Have you traveled recently to another state outside of [place], [place], [place], [place], [place], [place], [place]? no o If yes, did you quarantine for 14 days or have a negative covid test? no If yes to any of the above, patient is not to be scheduled in office until after 14 day quarantine or negative covid test. If pain or injury related was it due to an accident at work or from a motor vehicle accident? If yes, date of accident/Injury: No If yes, gather 3rd constitution party insurance information Third Democrat Information: not applicable PCP: Michael Ron MD Payor: [facility] MEDICARE ADVANTAGE / Plan: [place] MED[employer]VANTAGE / Product Type: *No Product type* / * Milena Reinoso - 09/08/2025 4:48 PM EST Patient calling regarding rx script being sent over to pharmacy. Please advise, patient would like call [phone] * Giselle Bridges RN - 09/08/2025 10:56 AM EST Spoke with the pt Still with the same kind of cough, Tessalon pearls are not helping the Yesterday was beige colored today is darker brown color No fevers States he ends up with sinus infection every time he gets these kind of symptoms Not SOB or difficulty breathing. 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 COVID test negative before visit yesterday. Eating and drinking normally Please advise * Mirian Yeager - 09/08/2025 10:29 AM EST Patient states he had seen Doris Hernández yesterday and was told to call today with an update on how heis feeling. States he is coughing up phlegm that is brown in color. States Doris told him to call with an updatetoday and she would send a script to his pharmacy. Looks like Tessalon was sent yesterday. Patient told me it isn't that script he is looking for he states Doris told him she would send something elsein today based upon his symptoms. He would like script sent to his local pharmacy [facility] Patient would like the office to call him back at [phone] with outcome of his request. documented in this encounter Plan of Treatment Upcoming Encounters Date Type Department Care Team (Late st Contact Info) Description 09/13/2025 9:00 AM EST Clinical Support [facility] - [address] [phone] 09/20/2025 9:00 AM EST Office Visit Endocrinology [address] [phone] Hilda Lozano PA [address] [place] [address] 11/11/2025 9:40 AM EST Office Visit [facility] Cardiology [facility] [address] [phone] Mirian Benitez PA [address] [place] [address] [place] [address] 12/15/2025 2:45 PM EST Office Visit Adult Medicine [address] [phone] Michael Ron MD [address] [place] [address] 12/29/2025 1:30 PM EDT Ancillary Procedure [facility] [address] [phone] documented as of this encounter Visit Diagnoses Not on filedocumented in this encounter Additional Health Concerns Assessment Noted Time PHQ-9 Depression Total Score: 0 09/07/20 25 9:50 AM EST documented as of this encounter Care Teams Associate Professor Of Library Science Relationship Specialty Start Date End Date Michael Ron MD [address] [place] [address] PCP - General Internal Medicine 07/05/20 documented as of this encounter
--- OUTSIDE RECORDS SUMMARY | 2025-09-11 13:16 | XMS_ITS | Encounter Summary ---
[facility] Address [address] [place] [address] Care Team Providers Care Business Area Manager Name Role Phone Michael Ron MD Primary Care Provider [phone] Encounter Details Date Type Department Care Team (Late Contact Info) Description 08/25/2025 Results Follow-Up Endocrinology - [address] [phone] Hilda Lozano PA [address] [place] [address] Social History Tobacco Use Types Packs/Day Years Used Date Smoking Tobacco: Never Smokeless Tobacco: Never Alcohol Use Standard Drinks/Week Comments Yes 0 (1 standard drink = 0.6 oz pur e alcohol) occasional Sex and Gender Information Value Date Recorded Sex Assigned at Male 08/27/2024 11:43 AM EST Legal Sex Male 2:47 AM EST Gender Identity Male 08/27/2024 11:43 AM EST Sexual Orientation Choose not to disclose 2023 11:43 AM EST documented as of this encounter Plan of Treatment Upcoming Encounters Date Type Department Care Team (Late st Contact Info) Description 09/13/2025 9:00 AM EST Clinical Support [facility] - [address] [phone] 09/20/2025 9:00 AM EST Office Visit Endocrinology - [address] [phone] Hilda Lozano PA [address] [place] [address] 11/11/2025 9:40 AM EST Office Visit [facility] Cardiology [facility] [address] [phone] Mirian Benitez PA [address] [place] [address] [place] [address] 12/15/2025 2:45 PM EST Office Visit Adult Medicine [address] [phone] Michael Ron MD [address] [place] [id number] 12/29/2025 1:30 PM EDT Ancillary Procedure [facility] [address] [facility] [address] [place] [phone] documented as of this encounter Visit Diagnoses Not on filedocumented in this encounter Care Teams Business Area Manager Relationship Specialty Start Date End Date Michael Ron MD [address] [place] [id number] PCP - General Internal Medicine 07/05/20 documented as of this encounter
[2025-09-11 13:21] LABS: MANUAL DIFF FLAG NO
[2025-09-11 13:23] LABS: Hematocrit 38.6 % (42.0-52.0); Hemoglobin 12.8 g/dl (14.0-18.0); Imm Gran Abs Auto 0.02 X10*3/uL (0.00-0.03); Imm Gran Pct Auto 0.3 % (0.0-0.4); Lymphocytes Absolute Auto 1.2 X10*3/uL (1.2-4.9); Mean Corpuscular HGB Conc 33.2 g/dl (31.0-36.0); Mean Corpuscular Hemoglobin 28.8 pg (27.0-33.0); Mean Corpuscular Volume 86.7 fL (80.0-98.0); NRBC Abs Auto 0.000 X10*3/uL (0.0-0.012); NRBC Pct Auto 0.0 /100WBC (0.0-0.2); Platelet Count 220 X10*3/uL (160-400); Red Blood Count 4.45 X10*6/uL (4.60-5.80); White Blood Count 7.7 X10*3/uL (4.8-10.8)
[2025-09-11 13:30] LABS: IDNOW Serial# 58CA691E; Strep A Nucleic Acid Negative (Negative)
[2025-09-11 13:40] LABS: Alanine Aminotransferase 18 U/L (0-40); Albumin Level 4.4 g/dL (3.5-5.0); Alkaline Phosphatase 84 U/L (39-117); Anion Gap 12 (12-20); Aspartate Amino Transferase 20 U/L (5-37); Blood Urea Nitrogen 21 mg/dL (9-16); Calcium 9.9 mg/dL (8.4-10.2); Carbon Dioxide 29 mmol/L (22-29); Chloride 103 mmol/L (96-108); Creatinine Clr Calc Pharmacy 55.1; Estimated Glomerular Filt Rate 58; Magnesium 2.0 mg/dL (1.6-2.6); Potassium 4.4 mmol/L (3.3-5.1); Sodium 140 mmol/L (135-145); Total Protein 6.9 g/dL (6.5-8.0)
[2025-09-11 14:52] LABS: Resp Syncy Virus RNA Qual PCR NEGATIVE (Negative); SARS COV2 PCR INHOUSE NEGATIVE (Negative)
[2025-09-11 16:04] VITALS: BP 120/58; PULSE 70; RESP 20; TEMP 36.3; O2SAT 97
== END 2025-09-11 16:05 | disposition home or self-care (01) ==
PROVIDERS: Physician Assistant Medical; Emergency Provider Emergency Medicine; PCP Internal Medicine
DX: J32.9 Chronic sinusitis, unspecified (principal); J06.9 Acute upper respiratory infection, unspecified; Z03.818 Encounter for observation for suspected exposure to other biological agents ruled out; J02.9 Acute pharyngitis, unspecified; R05.9 Cough, unspecified
CPT/HCPCS: 71046; 80053; 83735; 85025; 87637; 87651; 99282; 99283

== ENCOUNTER → 2025-09-11 12:39 | Outpatient (BNV) | payer MEDICARE, SELFPAY | PROVIDERS: Emergency Provider Emergency Medicine; PCP Internal Medicine; Visit Provider Radiology Diagnostic Radiology | DX: R05.9 Cough, unspecified (principal) | CPT/HCPCS: 71046 ==